=== PATIENT | female | born 1960 | race Caucasian/White ===

== ENCOUNTER → 2017-08-08 | Outpatient (CLI) | payer MEDICAID ==
--- NOTE | 2017-08-08 13:54 | RADIOLOGY REPORT (SQ) ---
EXAM DESCRIPTION: CT CHEST WITHOUT COMPLETED DATE/TIME: 08/08/2017 10:21 am REASON FOR STUDY: TOBACCO USER (Z72.0), PULMONARY NODULE (R91.1), PULM INFILTRATE (R91.8), DY R91.1 SOLITARY PULMONARY NODULE COMPARISON: None. TECHNIQUE: CT scan performed of the chest without intravenous contrast. Images reviewed with lung, soft tissue and bone windows. Reconstructed coronal and sagittal MPR images reviewed. All images st ored on PACS. All CT scanners at this facility use dose modulation, iterative reconstruction, and/or weight based d osing when appropriate to reduce radiation dose to as low as reasonably achievable (ALARA). [facility]: Dose Right [facility]: CareDose [facility]: Dose Right [facility]: Teradose 4D [facility]: Smart [employer] RADIATION DOSE: CT Rad equipment meets quality standard of care and radiation dose reduction techniq ues were employed. CTDIvol: 19.4 mGy. DLP: 792 mGy-cm. mGy. LIMITATIONS: No technical limitations. FINDINGS: LUNGS AND PLEURA: No masses, infiltrates, pneumothorax. No pleural effusions, calcificati ons. HILAR AND MEDIASTINAL STRUCTURES: 12 x 9 mm precarinal lymph node of doubtful clinical significance. HEART AND VASCULAR STRUCTURES: No aneurysm. No pericardial effusion. UPPER ABDOMEN: No significant findings. Limited exam. THYROID AND OTHER SOFT TISSUES: No masses. No adenopathy. BONES: No significant finding. HARDWARE: None in the chest. OTHER: No other significant findings. IMPRESSION: NO SIGNIFICANT FINDING ON NON-CONTRASTED CHEST CT. TECHNICAL DOCUMENTATION: JOB ID: [id number] Quality ID # [id number]: Final reports with documentation of one or more dose reduction techniques (e.g., Au tomated exposure control, adjustment of the mA and/or kV according to patient size, use of iterative reconstruction technique) 2010 [email or web address]- All Rights Reserved
== END ==
LOC: RAD 10:00
PROVIDERS: ATTEND Internal Medicine Critical Care Medicine
DX: R91.1 Solitary pulmonary nodule (principal); R91.8 Other nonspecific abnormal finding of lung field; R06.89 Other abnormalities of breathing; Z72.0 Tobacco use; Z80.9 Family history of malignant neoplasm, unspecified
CPT/HCPCS: 71250

== ENCOUNTER → 2017-11-14 | Outpatient (CLI) | payer MEDICAID | LOC: LAB 06:48 | PROVIDERS: ATTEND Family Medicine | DX: M25.462 Effusion, left knee (principal) | CPT/HCPCS: 36415; 85652; 86140 ==

== ENCOUNTER → 2017-11-14 | Outpatient (CLI) | payer MEDICAID ==
--- NOTE | 2017-11-14 09:43 | RADIOLOGY REPORT (SQ) ---
EXAM DESCRIPTION: PRERNA SWALLOW COMPLETED DATE/TIME: 11/14/2017 9:10 am REASON FOR STUDY: DYSPHAGIA (R13.12) R13.12 DYSPHAGIA, OROPHARYNGEAL PHASE COMPARISON: None. TECHNIQUE: Videofluoroscopic swallowing examination was performed in conjunction with speech patholo gy. Videofluoroscopic imaging was obtained and reviewed and these are the findings: RADIATION DOSE: Fluoro time 2.36 minutes 1 images saved to PACS. LIMITATIONS: None FINDINGS: The patient was brought into the fluoro room and placed upright on a modified barium swall ow chair. The patient was then given multiple consistencies mixed with barium to swallow under live fluoroscopic video guidance. According to the Speech Pathologist there was deep laryngeal penetratio n seen with thin barium. No aspiration identified. All other consistencies swallowed without incide nt. Please refer to the speech pathology report for further details. IMPRESSION: DEEP LARYNGEAL PENETRATION, WITHOUT ASPIRATION, SEEN WITH THIN BARIUM.PLEASE SEE SPEECH PATHOLOGIST REPORT FOR OTHER FINDINGS AND RECOMMENDATIONS. COMMENT: None Quality ID 145: Final reports for procedures using fluoroscopy that document radiation exposure tammie jessiac, or exposure time and number of fluorographic images (if radiation exposure indices are not avail able) TECHNICAL DOCUMENTATION: JOB ID: [id number] [employer]- All Rights Reserved Reading location - IP/workstation name: [id number]
--- NOTE | 2017-11-14 11:17 | ST Modified Barium Swallow ---
Recommendation - Recommendations Recommendations: Recommend small sips of liquid, and liquid wash after solids. Patient may benefit from outpatient swallowing treatment. Patient educated to discuss with physician if she wished to persue this. Medical Diagnoses - Medical Diagnoses Medical Diagnosis Description & ICD-10 Code(s): R13.12, R13.10, dysphagia Other Medical Diagnoses/Co-Morbidities: per patient report: reflux, asthma, arthritis, sleep apnea ST Modified Barium Swallow - General Date: 11/14/17 Referring Physician: Dr. Hills - History History obtained from: Patient -: Medical, Family/Social, Occupational Medications: per patient (not a complete list): Prazosin, Effexor XR, Seroquel, Abilify, HTZC, Vesicarem Albuterol, gabapentin, lisinapril, metformin Allergies: patient reports none - Functional Status Prior Functional Status: INDEPENDENT: feeding - independent Current Functional Limitations: feeding - Subjective Patient/caregiver goal(s): r/o struct. abnormality, other - patient expressed concern about having cancer, patient educated that this test does not look for or diagnose cancer. Encouraged patient to follow up with physician regarding these concers. Cognitive-Linguistic Function: Functional Speech Intelligibility: WNL Current Nutritional Means: PO Current PO diet: Regular Current symptoms: c/o Globus sensation Pain: Patient reports, 5/5 - hip pain, however, states that it is not as bad as it can get - Objective Assessment: Upright, Left Lateral - Food Trials Used Food trials used: Thin liquids, Pureed, Regular The patient: Was Able to Self Feed - Oral-Motor Skills Dentition: Dentures-Upper - Assessment Oral prep: Normal Labial closure: Adequate Leakage: None Mastication: Adequate Lingual Movement: Normal Oral stage: Normal for this Procedure - Pharyngeal Stage Initiation of Pharyngeal Stage Reflex: Normal Decreased laryngeal elevation: No Reduced Velopharyngeal Closure: no Reduced pressure generation: No reduced tongue-based retraction: No Pre-swallow pooling in valleculae: Mild Pre-Swallow pooling in pyriforms: None Reduced Thyro-Hyoid approximation: Yes - mild Reduced epiglottic excursion: Yes - mild Multiple Swallows with: Cleared w/ Liquid Assist Post-swallow residulas vallecular: Moderate - with solid trial Post-Swallow residuals in pyriforms: None - Fall Risk Assessment Medications/Conditions that increase fall risks include: Antidepressants, sedatives, anti-arrhythmic, diuretic, benzodiazipenes, neuroleptics. BP regulation problems, cardiac problems, balance or gait deficits, neurological problems. Fall Risk Actions Taken: No action needed - Behavioral Observations During evaluation process patient: was pleasant, was cooperative, able to answer questions - Treatment / Educational Needs: Treatment/Education Needs: Treatment consisted of patient education on the role of the Speech Pathologist. Patient's plan of care and golas were communicated as well as scheduling and attendance policies. Recommendations for initial home program were shared. Patient demonstrated understanding and verbalized agreement. - Impression/Summary Laryngeal Penetration: Yes, Deep, during swallow Consistency: Thin Tracheal Aspiration: no Patient presents with: Pharyngeal stage dysph., Mild-Moderate Risk of Aspiration: Mild Evaluation and Findings: Patient presents with moderate pharyngeal dysphagia characterized by reduced epiglottic inversion, resulting in penetration of thin liquid, and residue of solids in valleculae and at posterior pharyngeal wall. No aspiration seen, and residue was seen to clear with liquid wash. Recommend liquid wash and reduced rate for liquids. Patient may benefit from outpatient treatment for dysphagia strategies, patient educated to discuss with physician if she wished to persue this. - Recommendations Solid diet recommendations: Regular Liquid Diet Modification: Thin Dysphagia therapy with [employer]: yes - if patient desires Reflux Precautions: Taught to Patient Recommended techniques: Fully Upright During Meal, Small Bites and Sips, Alternate Bites/Sips Information, Precautions and Recommendations: Patient (Written), Patient (Verbal ) - Time Total Time: 20 - Plan of Care Strategies to optimize patient understanding include:: ongoing assessment of educational needs, implementation of educational strategies, and re-education. - - -: Thank you for the opportunity to work with this patient and his/her family. Should you have any questions about this patient's plan or progress, I can be reached at [phone]. Charge G Code? - - -: No
== END ==
LOC: RAD 07:06
DX: R13.12 Dysphagia, oropharyngeal phase (principal)
CPT/HCPCS: 74230

== ENCOUNTER → 2017-11-22 | Outpatient (CLI) | payer MEDICAID ==
--- NOTE | 2017-11-22 09:52 | RADIOLOGY REPORT (SQ) ---
EXAM DESCRIPTION: CT LT LOWER EXTREMITY WITHOUT COMPLETED DATE/TIME: 11/22/2017 8:16 am REASON FOR STUDY: LEFT KNEE EFFUSION (M25.462) M25.462 EFFUSION, LEFT KNEE COMPARISON: None. TECHNIQUE: Axial imaging performed through the left knee with reformatted coronal and sagittal imagi ng windowed for bone and soft tissues. Images saved to PACS. 3D IMAGING: Were 3D images as MIP, SSD, or volume rendering performed at the work station? Yes. All CT scanners at this facility use dose modulation, iterative reconstruction, and/or weight based d osing when appropriate to reduce radiation dose to as low as reasonably achievable (ALARA). [facility]: Dose Right [facility]: CareDose [facility]: Dose Right [facility]: Teradose 4D [facility]: [employer] LIMITATIONS: Regional streak artifact related to the patient's knee arthroplasty. This distorts and obscures regional tissues. RADIATION DOSE: CT Rad equipment meets quality standard of care and radiation dose reduction techniq ues were employed. CTDIvol: 6.5 mGy. DLP: 171 mGy-cm. mGy. FINDINGS: SOFT TISSUES: Thick-walled moderate knee joint effusion. Regional soft tissues generally unremarkable. No other drainable collections. BONES: Knee arthroplasty looks intact with appropriate articulation and no evidence of loosening. No fracture or bone lesion. MINERALIZATION: Normal. OTHER: No other significant finding. IMPRESSION: 1. Moderate joint effusion with likely synovial thickening. 2. Intact knee arthroplast y. No evidence of loosening or periprosthetic fracture. TECHNICAL DOCUMENTATION: JOB ID: [id number] Quality ID # [id number]: Final reports with documentation of one or more dose reduction techniques (e.g., Au tomated exposure control, adjustment of the mA and/or kV according to patient size, use of iterative reconstruction technique) 2010 [employer]- All Rights Reserved Reading location - IP/workstation name: [email or web address]
== END ==
LOC: RAD 08:00
PROVIDERS: ATTEND Family Medicine
DX: M25.462 Effusion, left knee (principal)

== ENCOUNTER 2018-10-23 04:54 | Emergency (ER) | payer MEDICAID ==
[2018-10-23] MEDS ORDERED: NORMAL SALINE 500 ML IV ONE (05:06)
--- NOTE | 2018-10-23 05:08 | ER Document Report ---
ED General - General TRAVEL OUTSIDE OF THE [place] IN LAST 30 DAYS: No <MACARIO DAVIDSON - Last Filed: 10/23/18 08:17> <NORMAN AMAYA - Last Filed: 10/23/18 13:32> - General Chief Complaint: Syncope Stated Complaint: syncopal episode Time Seen by Provider: 10/23/18 04:58 Primary Care Provider: BECKY OLIVEIRA MD [ACTIVE STAFF] - Follow up in 1 week (call to make an appt for 1 week follow-up ) CANDIDO RAGSDALE DO [ACTIVE STAFF] - Follow up as needed Notes: Patient is a 58-year-old female that comes to the emergency department by EMS for chief complaint of a possible syncopal episode. Patient states she had taken her nighttime medication and she woke up on the floor in the kitchen, she states she does not remember how she got there. She states she has pain in her neck and her back but this is been going on for weeks and is not new tonight, is not changed. She denies headache or head injury she denies chest pain or shortness of breath.. She also reports some pain in her abdomen, multiple episodes of diarrhea (approximately 5 over the past day), reports nausea but denies vomiting. She denies fever. She also reports cough for about 1 month. She reports dizziness when standing, EMS is given 500 cc fluid bolus. Past medical history of COPD, type 2 diabetes, hypertension, fibromyalgia, bipolar disorder, . (MACARIO DAVIDSON) - Related Data Allergies/Adverse Reactions: pregabalin [From Lyrica] Allergy (Verified 05/29/16 12:45) Past Medical History - General Information source: Patient - Social History Smoking Status: Never Smoker Frequency of alcohol use: None Drug Abuse: None Lives with: Alone Family History: Reviewed & Not Pertinent - Past Medical History Cardiac Medical History: Reports: Hx Hypercholesterolemia, Hx Hypertension Denies: Hx Pulmonary Embolism Pulmonary Medical History: Reports: Hx Asthma Denies: Hx Bronchitis, Hx COPD, Hx Pneumonia, Hx Respiratory Failure, Hx Sleep Apnea, Hx Tuberculosis Malignancy Medical History: Denies: Hx Lung Cancer GI Medical History: Denies: Hx Crohn's Disease, Hx Gastroesophageal Reflux D isease, Hx Hiatal Hernia, Hx Irritable Bowel, Hx Liver Failure, Hx Pancreatitis, Hx Ulcer Musculoskeletal Medical History: Reports Hx Fibromyalgia Psychiatric Medical History: Reports: Hx Bipolar Disorder, Hx Depression, Hx Post Traumatic Stress Disorder Past Surgical History: Reports: Hx Section, Hx Orthopedic Surgery - back surgery, left hip and knee, Hx Tonsillectomy. Denies: Hx Colostomy, Hx Pacemaker - Immunizations Immunizations up to date: Yes Hx Diphtheria, Pertussis, Tetanus Vaccination: Yes <MACARIO DAVIDSON - Last Filed: 10/23/18 08:17> Review of Systems - Review of Systems Constitutional: See HPI EENT: No symptoms reported Cardiovascular: See HPI Respiratory: No symptoms reported Gastrointestinal: See HPI Genitourinary: No symptoms reported Female Genitourinary: No symptoms reported Musculoskeletal: No symptoms reported Skin: No symptoms reported Hematologic/Lymphatic: No symptoms reported Neurological/Psychological: No symptoms reported <MACARIO DAVIDSON - Last Filed: 10/23/18 08:17> Physical Exam <MACARIO DAVIDSON - Last Filed: 10/23/18 08:17> - Vital signs Vitals: Pulse Ox 96 10/23/18 04:56 - Notes Notes: GENERAL: Alert, interacts well. No acute distress. HEAD: Normocephalic, atraumatic. EYES: Pupils equal, round, and reactive to light. Extraocular movements intact. ENT: Oral mucosa moist, tongue midline. Oropharynx unremarkable. Airway patent. Nares patent, no nasal septal hematoma, TM's intact. NECK: Full range of motion. Supple. Trachea midline. LUNGS: Clear to auscultation bilaterally, no wheezes, rales, or rhonchi. No respiratory distress. HEART: Regular rate and rhythm. No murmur ABDOMEN: Soft, very mild general lower abdominal tenderness. Borderline mild distention. Bowel sounds present in all 4 quadrants. No signs of trauma. GENITOURINARY: Deferred EXTREMITIES: Moves all 4 extremities spontaneously. No edema, normal radial and dorsalis pedis pulses bilaterally. No cyanosis. BACK: Mild bilateral paralumbar and parathoracic muscular tenderness. No signs of trauma. No cervical, thoracic, lumbar midline tenderness. No saddle anesthesia, normal distal neurovascular exam. NEUROLOGICAL: Alert and oriented x3. Normal speech. Cranial nerves II through XII grossly intact. PSYCH: Normal affect, normal mood. SKIN: Warm, dry, normal turgor. No rashes or lesions noted. (MACARIO DAVIDSON) Course - Laboratory Result Diagrams: 10/23/18 04:56 10/23/18 04:56 <MACARIO DAVIDSON - Last Filed: 10/23/18 08:17> - Laboratory Result Diagrams: 10/23/18 04:56 10/23/18 04:56 - EKG Interpretation by Me EKG shows normal: Sinus rhythm Rate: Normal, Bradycardia Rhythm: NSR <NORMAN AMAYA - Last Filed: 10/23/18 13:32> - Re-evaluation Re-evalutation: Patient alert, talkative, smiling, well-appearing. She has her back, no signs of head trauma, no signs of trauma over the chest or abdomen. Very mild lower ab dominal tenderness. Extremities are unremarkable and nontender. Vital signs are unremarkable. Patient is somewhat difficult as a historian, reports a lot of chronic symptoms along with nonspecific new ones. It is unclear if she was sleepwalking or passed out, she is not postictal on my evaluation or on EMS evaluate reported history of seizures. I do not suspect CVA because she does not have a neurological deficit, she does not report a headache and she does not have evidence of head injury. CBC unremarkable, chemistry unremarkable, troponin is negative. EKG shows borderline sinus bradycardia at a rate of 57, QTC of 433, with no T wave inversions or ST segment changes in consecutive leads. Chest x-ray is unremarkable. Patient asking for something for pain from her back and neck although these are not new and this is her chronic location. She states she is unable to get us a sample of diarrhea despite reporting multiple episodes during the day. 10/23/18 06:10 On reexamination patient is now holding her right hip area and and complaining of general lower abdominal pian. This is different from her first evaluation however patient is complaining and holding the areas. On palpation patient has general lower abdominal pain now and patient of pain over the right hip now. Hip pain is reportedly chronic. Patient persisting with this, patient will be medicated for pain CAT scan will be performed because of her fall injury. 10/23/18 07:50 CAT scan showing 3.3 cm left ovarian cyst, no acute findings otherwise. Because of patient's age, general lower abdominal pain, nausea discussed with patient and decision was made to perform ultrasound now. Second troponin, however based on patient's reported symptoms, I did discuss this and patient is telling me that she thinks that she was "sleepwalking and ended up in the kitchen". I agree with this as the most likely event that happened tonight. 10/23/18 08:15 Introduced to Monalisa Amaya at bedside pending final results. (MACARIO DAVIDSON) 0815-diet deposition given by JUANITA Blank,, patient evaluated at bedside, vital signs stable, awaiting ultrasound and serial troponin labs. Patient is not complaining of any pain at this time, afebrile on exam distress 1212-Dr. Becky Oliveira, OBGYN regional sales leader consulted. Patient states she is having some pain in her hip she had been shaking, patient has been on a nature hours, did return call from Dr. Becky Oliveira, SPORTS BOOKMAKER reviewed pertinent laboratory diagnostic and clinical findings. To evaluate patient in office, requested for cancer markers to be ordered for them to be resulted by time doing can evaluate patient in office. Discussed results with patient at length. She is aware that she does need to follow-up with MUCKING MACHINE OPERATOR for further evaluation and management of cyst discussed with patient that she will be given Zofran for any hydrocodone 5 mg 325 will be prescribed from the emergency room #6, do not drive, drink or operate heavy machinery as it can cause impairment of cognitive function and sedation. 3 sets of troponin negative through a 10-hour time frame since intial lab was at 0400 today. patient has not experienced any cardiac pain or shortness of breath, vitals have remained stable, patient has remained afebrile. Patient has been stable throughout duration of ER stay with this provider. after performing a Medical Screening Examination, I estimate there is LOW risk for ACUTE APPENDICITIS, BOWEL OBSTRUCTION, ACUTE CHOLECYSTITIS, PERFORATED DIVERTICULITIS, INCARCERATED HERNIA, PANCREATITIS, PELVIC INFLAMMATORY DISEASE, PERFORATED ULCER, ECTOPIC , or TUBO-OVARIAN ABSCESS, thus I consider the discharge disposition reasonable. Also, there is no evidence or peritonitis, sepsis, or toxicity. I have reevaluated this patient multiple times and no significant life threatening changes are noted. The patient and I have discussed the diagnosis and risks, and we agree with discharging home with close follow-up with the understanding that symptoms and presentations can change. We also discussed returning to the Emergency Department immediately if new or worsening symptoms occur. We have discussed the symptoms which are most concerning (e.g., bloody stool, fever, changing or worsening pain, vomiting) that necessitate i mmediate return. Return immediately for any new or worsening symptoms. Follow up with primary care provider, call tomorrow to make followup appointment. 10/23/18 13:29 (NORMAN AMAYA) - Vital Signs Vital signs: Temp Pulse Resp BP Pulse Ox 97.6 F 18 116/55 L 92 10/23/18 05:08 10/23/18 12:01 10/23/18 12:01 10/23/18 12:01 - Laboratory Laboratory results interpreted by me: 10/23/18 10/23/18 10/23/18 04:56 04:56 07:15 WBC 12.2 H Chloride 108 H Albumin 3.4 L Ur Leukocyte Esterase TRACE H Discharge <MACARIO DAVIDSON - Last Filed: 10/23/18 08:17> <NORMAN AMAYA - Last Filed: 10/23/18 13:32> - Discharge Clinical Impression: Lower abdominal pain, Nausea, Left ovarian cyst Abdominal pain Qualifiers: Abdominal location: generalized Qualified Code(s): R10.84 - Generalized ab dominal pain Condition: Stable Disposition: HOME, SELF-CARE Instructions: Abdominal Pain ([facility]), Antinausea Medication ([facility]), Oral Narcotic Medication ([facility]) Additional Instructions: Your CT abdomen pelvis was essentially normal aside showing a left ovarian cyst, we did do a transvaginal ultrasound which did show that you had a left ovarian mass, he will be following up with SPORTS BOOKMAKER, Dr. Becky Oliveira, within 1 week to review further findings. We will send you home with anti-nausea medication and pain medication, do not drive, drink or operate heavy machinery as this can cause sedation and impairment of cognitive function. You will need to follow-up with MUCKING MACHINE OPERATOR within the next week if you experience any fever, abdominal pain, vomiting, vaginal bleeding, vaginal pain etc. return to emergency room immediately. Return immediately for any new or worsening symptoms. Follow up with primary care provider, call tomorrow to make followup appointment. Prescriptions: Ondansetron [Zofran Odt 4 mg Tablet] 1 - 2 tab PO Q4H PRN #15 tab.rapdis PRN Reason: For Nausea/Vomiting Referrals: JN,CANDIDO A, DO [ACTIVE STAFF] - Follow up as needed BECKY OLIVEIRA MD [ACTIVE STAFF] - Follow up in 1 week (call to make an appt for 1 week follow-up )
[2018-10-23] MEDS ORDERED: ONDANSETRON HCL INJ/PF 4 MG/2 ML SDV IV ONE (05:09)
[2018-10-23 05:18] LABS: ABSOLUTE BASOPHILS # (AUTO) 0.1 10^3/uL (0.0-0.2); ABSOLUTE EOSINOPHILS # (AUTO) 0.3 10^3/uL (0.0-0.6); ABSOLUTE LYMPHOCYTES (AUTO) 4.7 10^3/uL (0.5-4.7); ABSOLUTE NEUT (AUTO) 6.2 10^3/uL (1.7-8.2); BASOPHILS % (AUTO) 0.5 % (0-2); EOSINOPHILS % (AUTO) 2.7 % (0-6); HEMOGLOBIN 12.5 g/dL (12.0-15.5); LYMPHOCYTES % (AUTO) 38.4 % (13-45); MEAN CORPUSCULAR HEMOGLOBIN 31.2 pg (27.0-33.4); MEAN CORPUSCULAR HGB CONC 33.8 g/dL (32.0-36.0); MEAN CORPUSCULAR VOLUME 92 fl (80-97); MONOCYTES % (AUTO) 7.9 % (3-13); PLATELET COUNT 305 10^3/uL (150-450); RED BLOOD COUNT 4.02 10^6/uL (3.72-5.28); RED CELL DISTRIBUTION WIDTH 13.2 % (11.5-14.0); SEGMENTED NEUTROPHILS % (AUTO) 50.5 % (42-78); TOTAL CELLS COUNTED % (AUTO) 100 %; WHITE BLOOD COUNT 12.2 10^3/uL (4.0-10.5)
--- NOTE | 2018-10-23 05:44 | RADIOLOGY REPORT (SQ) ---
Chest single view on 10/23/2018 at 5:31 AM CLINICAL INDICATION: Syncopal episode COMPARISON: 06/07/2011 FINDINGS: Evaluation of the lungs especially the upper lungs is limited by technique with overpenetration. A few overlying wires are noted. The lungs appear grossly clear. Cardiac, hilar and mediastinal contours are within normal limits. Pulmonary vascularity is within normal limits. IMPRESSION: No acute disease.
[2018-10-23 05:46] LABS: ALANINE AMINOTRANSFERASE 24 U/L (9-52); ALBUMIN 3.4 g/dL (3.5-5.0); ALKALINE PHOSPHATASE 57 U/L (38-126); ANION GAP 6 (5-19); ASPARTATE AMINO TRANSFERASE 20 U/L (14-36); BILIRUBIN,DIRECT 0.2 mg/dL (0.0-0.4); BILIRUBIN,TOTAL 0.4 mg/dL (0.2-1.3); BLOOD UREA NITROGEN 20 mg/dL (7-20); CALCIUM 9.2 mg/dL (8.4-10.2); CARBON DIOXIDE 27 mmol/L (22-30); CHLORIDE 108 mmol/L (98-107); GLUCOSE 103 mg/dL (75-110); POTASSIUM 4.2 mmol/L (3.6-5.0); SODIUM 141.2 mmol/L (137-145); TOTAL PROTEIN 6.7 g/dL (6.3-8.2)
[2018-10-23] MEDS ORDERED: FENTANYL CITRATE INJ/PF 100 MCG/2 ML AMPUL IV ONE ×2 (06:12→12:17)
--- NOTE | 2018-10-23 07:44 | RADIOLOGY REPORT (SQ) ---
CT abdomen and pelvis with contrast on 10/23/2018 at 6:55 AM CLINICAL INDICATION: Lower abdominal pain after fall, right hip pain TECHNIQUE: Multiple axial images are obtained throughout the abdomen and pelvis following the administration of IV contrast, 100 mL of Omnipaque 350 contrast was administered intravenously without complication. This exam was performed according to our departmental dose-optimization program, which includes automated exposure control, adjustment of the mA and/or kV according to patient size and/or use of iterative reconstruction technique. Total DLP is 2610.76 mGy*cm. COMPARISON: None FINDINGS: Abdomen: The lung bases are clear. There is fatty infiltration of the liver. The solid abdominal organs are otherwise unremarkable. There is no abdominal adenopathy. Mild vascular calcifications are noted. There is no free fluid or free air within the abdomen. The abdominal portion of the GI tract is unremarkable. Pelvis: There is a 3.3 x 2.9 x 3.1 cm simple appearing left ovarian cyst. Based upon the patient's age and its size would recommend prompt ultrasound follow-up. Pelvic organs otherwise appear unremarkable by CT. There is no free fluid in the pelvis. There is no pelvic adenopathy. The pelvic portion of the GI tract including the appendix is unremarkable. The patient is status post a right total hip arthroplasty. Degenerative changes are noted in the spine. There is grade 1 spondylolisthesis at L4-5 and L3-4 secondary to degenerative facet disease. No acute bony abnormality is noted. IMPRESSION: 1. 3.3 cm simple appearing left ovarian cyst. Based upon its size and the patient's age would recommend prompt ultrasound follow-up. 2. Fatty infiltration of the liver.
[2018-10-23 07:48] LABS: APPEARANCE,URINE SLIGHTLY-CLOUDY; BILIRUBIN,URINE NEGATIVE (NEGATIVE); COLOR,URINE YELLOW; GLUCOSE, URINE NEGATIVE (NEGATIVE); KETONES,URINE NEGATIVE (NEGATIVE); LEUKOCYTE ESTERASE,URINE TRACE (NEGATIVE); NITRITE,URINE NEGATIVE (NEGATIVE); PROTEIN,URINE NEGATIVE (NEGATIVE); URINE SPECIFIC GRAVITY 1.025; UROBILINOGEN,URINE NEGATIVE mg/dL (<2.0)
--- NOTE | 2018-10-23 07:56 | EKG REPORT ---
SEVERITY:- ABNORMAL ECG - SINUS RHYTHM ABNRM R PROG, CONSIDER ASMI OR LEAD PLACEMENT : Confirmed by: Tony Lott MD 23-Oct-2018 07:55:45
--- NOTE | 2018-10-23 10:35 | RADIOLOGY REPORT (SQ) ---
EXAM DESCRIPTION: U/S NON OB PEL TV W/DOPPLER COMPLETED DATE/TIME: 10/23/2018 10:19 am REASON FOR STUDY: eval cyst; lower abd pain, nausea COMPARISON: CT abdomen pelvis examination dated 10/23/2018. TECHNIQUE: Dynamic and static grayscale images acquired of the pelvis via transvaginal approach and recorded on PACS. Additional selected color Doppler and spectral images recorded. LIMITATIONS: None. FINDINGS: UTERUS: Contour normal. No mass. ENDOMETRIAL STRIPE: No focal or generalized thickening. No masses. CERVIX: The cervix measures 1.2 cm in length. No nabothian cysts. RIGHT OVARY AND DOPPLER: Not visualized. LEFT OVARY AND DOPPLER: A 3.3 x 2.7 x 3.6 cm cyst with some low level internal echoes. This finding likely correlates to the CT abdomen and pelvis examination dated 10/23/2018. FREE FLUID: None noted. OTHER: The patient was unable to completely emptied the urinary bladder, limiting evaluation somewha t. MEASUREMENTS: UTERUS: 5.6 x 4.0 x 3.2 cm ENDOMETRIAL STRIPE: 5 mm RIGHT OVARY: Not visualized LEFT OVARY: 4 x 4 x 4.3 cm. IMPRESSION: 1. The right ovary is not visualized sonographically. 2. Left ovarian cyst with some low-level internal echoes. This finding likely correlates to the CT examination dated 10/23/2018. Correlation suggested. Please see comments below. COMMENT: Followup of asymptomatic indeterminate cysts detected by ultrasound in POSTMENOPAUSAL patie nts Findings suggestive of but not classic for hemorrhagic cyst, endometrioma or dermoid: *Consider surgical evaluation Single thin septation or focal wall calcification: *Same as simple cyst, based on size Multiple septations in a cyst: *Consider surgical evaluation Nodule in a cyst: *Consider surgical evaluation or MRI if no blood flow in nodule *Consider surgical evaluation if blood flow in nodule Note: If cyst is clinically symptomatic or otherwise concerning, other followup may be warranted. Menopause is considered age 50 by radiologist unless age of last period is known. Based on recommenda tions of the Society for Radiologists in Ultrasound Consensus Conference Statement 2010 on management of asymptomatic ovarian and other adnexal cysts imaged at ultrasound. trasound. TECHNICAL DOCUMENTATION: JOB ID: [id number] [employer]- All Rights Reserved Rev Reading location - IP/workstation name: [email or web address]
[2018-10-23] MEDS ORDERED: HYDROCODONE/ACETAMINOPHEN 5-325 MG (6 TAB/ER DISP) PO PRN (13:24)
[2018-10-23 13:33] VITALS: BP 116/65
== END 2018-10-23 13:43 | disposition home or self-care (01) ==
LOC: ER 04:54
DX: N83.202 Unspecified ovarian cyst, left side (principal); R10.30 Lower abdominal pain, unspecified; R10.84 Generalized abdominal pain; R55 Syncope and collapse; M54.2 Cervicalgia; R42 Dizziness and giddiness; R10.9 Unspecified abdominal pain; R19.7 Diarrhea, unspecified; R11.0 Nausea; R05 Cough; W18.30XA Fall on same level, unspecified, initial encounter; Y93.9 Activity, unspecified; Y92.000 Kitchen of unspecified non-institutional (private) residence as the place of occurrence of the external cause; J44.9 Chronic obstructive pulmonary disease, unspecified; I10 Essential (primary) hypertension; E11.9 Type 2 diabetes mellitus without complications
CPT/HCPCS: 93005; 96376; 99285; 96361; 96374; 96375; 36415; 86301; 86304; 82378; 83690; 85025; 80053; 81001; 84484; 71045; 76830; 93976; 74177; 93010; J3010; J2405; J7040

== ENCOUNTER 2019-01-02 10:34 | Day surgery (SDC) | payer MEDICAID ==
[2018-12-31 12:02] LABS: HEMATOCRIT 38.9 % (36.0-47.0); HEMOGLOBIN 13.2 g/dL (12.0-15.5); MEAN CORPUSCULAR HGB CONC 33.9 g/dL (32.0-36.0); MEAN CORPUSCULAR VOLUME 92 fl (80-97); PLATELET COUNT 357 10^3/uL (150-450); RED BLOOD COUNT 4.25 10^6/uL (3.72-5.28); RED CELL DISTRIBUTION WIDTH 13.6 % (11.5-14.0); WHITE BLOOD COUNT 10.9 10^3/uL (4.0-10.5)
[2018-12-31 12:19] LABS: APPEARANCE,URINE SLIGHTLY-CLOUDY; BILIRUBIN,URINE NEGATIVE (NEGATIVE); COLOR,URINE YELLOW; GLUCOSE, URINE NEGATIVE (NEGATIVE); KETONES,URINE NEGATIVE (NEGATIVE); LEUKOCYTE ESTERASE,URINE MODERATE (NEGATIVE); NITRITE,URINE NEGATIVE (NEGATIVE); PROTEIN,URINE NEGATIVE (NEGATIVE); URINE SPECIFIC GRAVITY 1.016; UROBILINOGEN,URINE NEGATIVE mg/dL (<2.0)
[2018-12-31 12:24] LABS: ALANINE AMINOTRANSFERASE 31 U/L (9-52); ALBUMIN 4.2 g/dL (3.5-5.0); ALKALINE PHOSPHATASE 64 U/L (38-126); ANION GAP 11 (5-19); ASPARTATE AMINO TRANSFERASE 26 U/L (14-36); BILIRUBIN,DIRECT 0.2 mg/dL (0.0-0.4); BILIRUBIN,TOTAL 0.3 mg/dL (0.2-1.3); BLOOD UREA NITROGEN 22 mg/dL (7-20); CALCIUM 9.4 mg/dL (8.4-10.2); CARBON DIOXIDE 28 mmol/L (22-30); CHLORIDE 101 mmol/L (98-107); GLUCOSE 97 mg/dL (75-110); POTASSIUM 4.7 mmol/L (3.6-5.0); TOTAL PROTEIN 7.7 g/dL (6.3-8.2)
--- NOTE | 2018-12-31 12:49 | RADIOLOGY REPORT (SQ) ---
EXAM DESCRIPTION: CHEST PA/LATERAL COMPLETED DATE/TIME: 12/31/2018 11:38 am REASON FOR STUDY: PRE-OP COMPARISON: 10/23/2018 EXAM PARAMETERS: NUMBER OF VIEWS: two views TECHNIQUE: Digital Frontal and Lateral radiographic views of the chest acquired. RADIATION DOSE: NA LIMITATIONS: none FINDINGS: LUNGS AND PLEURA: No opacities, masses or pneumothorax. No pleural effusion. MEDIASTINUM AND HILAR STRUCTURES: No masses or contour abnormalities. HEART AND VASCULAR STRUCTURES: Heart normal size. No evidence for failure. BONES: No acute findings. HARDWARE: None in the chest. OTHER: No other significant finding. IMPRESSION: NO SIGNIFICANT RADIOGRAPHIC FINDING IN THE CHEST. TECHNICAL DOCUMENTATION: JOB ID: [id number] [employer]- All Rights Reserved Reading location - IP/workstation name: [email or web address]
--- NOTE | 2019-01-01 00:36 | EKG REPORT ---
SEVERITY:- NORMAL ECG - SINUS RHYTHM : Confirmed by: Joanna Perry 01-Jan-2019 00:36:33
[~2019-01-02 10:34] MED LIST: LACTATED RINGERS 1000 ML IV PRN; LIDOCAINE 0.5% INJ-PF (5 MG/ML) 50 ML SDV SUBCUT PRN; LIDOCAINE 2% INJ (20 MG/ML) 20 ML MDV ONE
[2019-01-02] MEDS ORDERED: ALBUTEROL SULFATE 0.083% NEB 2.5 MG/3 ML AMPUL NEB ONE (10:51)
[2019-01-02] MEDS ORDERED: BUPIVACAINE HCL 0.25 % INJ/PF (2.5 MG/1 ML) 30 ML VIAL ONE (11:07)
[2019-01-02] MEDS ORDERED: FENTANYL CITRATE INJ/PF 100 MCG/2 ML AMPUL ONE (11:11)
[2019-01-02] MEDS ORDERED: MIDAZOLAM 2 MG/2 ML INJ ONE (11:11)
[2019-01-02] MEDS ORDERED: HYDROMORPHONE HCL INJ/PF 2 MG/ML AMPULE ONE (11:11)
[2019-01-02] MEDS ORDERED: PROPOFOL INJ 200 MG/20 ML VIAL IV ONE (11:12)
[2019-01-02] MEDS ORDERED: EPHEDRINE SULFATE INJ 50 MG/1 ML AMPULE ONE (12:14)
[2019-01-02] MEDS ORDERED: PROMETHAZINE HCL INJ 25 MG/1 ML VIAL IV PRN (12:28)
[2019-01-02] MEDS ORDERED: MEPERIDINE HCL/PF INJ 25 MG/1 ML DISP.SYRIN IV PRN (12:28)
[2019-01-02] MEDS ORDERED: OXYCODONE-ACETAMINOPHEN 5-325 MG TABLET PO PRN ×4 (12:28→14:39)
[2019-01-02] MEDS ORDERED: FENTANYL CITRATE INJ/PF 100 MCG/2 ML AMPUL IV PRN ×3 (12:28)
[2019-01-02] MEDS ORDERED: ONDANSETRON HCL INJ/PF 4 MG/2 ML SDV IV PRN ×2 (12:28→14:32)
[2019-01-02] MEDS ORDERED: DIPHENHYDRAMINE HCL 50 MG/ML VIAL IV PRN (12:28)
[2019-01-02] MEDS ORDERED: MORPHINE SULFATE 10 MG/ML INJ IV PRN (12:28)
[2019-01-02] MEDS: FENTANYL CITRATE INJ/PF 100 MCG/2 ML AMPUL ONE ×2 (14:05→14:10)
[2019-01-02] MEDS ORDERED: ACETAMINOPHEN 1,000 MG/100 ML RTUPB IV ONE (14:29)
[2019-01-02] MEDS ORDERED: IBUPROFEN 800 MG TABLET PO PRN (14:35)
[2019-01-02] MEDS ORDERED: OXYCODONE-ACETAMINOPHEN 5-325 MG TABLET ONE (14:55)
[2019-01-02 16:26] VITALS: BP 119/68
[2019-01-02] MEDS ORDERED: ONDANSETRON HCL INJ/PF 4 MG/2 ML SDV ONE (17:26)
[2019-01-02] MEDS ORDERED: SUCCINYLCHOLINE CHLORIDE INJ 200 MG/10 ML VIAL ONE (17:26)
[2019-01-02] MEDS ORDERED: DEXAMETHASONE SOD PHOSPHATE INJ 4 MG/1 ML VIAL ONE (17:26)
[2019-01-02] MEDS ORDERED: ROCURONIUM BROMIDE INJ 50 MG/5 ML VIAL IV ONE (17:26)
--- NOTE | 2019-02-02 00:52 | Operative Report ---
Operative Report DATE OF SURGERY: 01/02/19 PREOPERATIVE DIAGNOSIS: Pelvic pain, left ovarian cyst, Menopausal POSTOPERATIVE DIAGNOSIS: ENRIQUETA - pelvic Adhesions OPERATION: Operative Laparoscopy, Bilateral Salpingo-Ophorectomy, Lysis of Adhesions SURGEON: JANET NAQVI ANESTHESIA: GA TISSUE REMOVED OR ALTERED: bilateral fallopian tubes, bilateral ovaries COMPLICATIONS: none ESTIMATED BLOOD LOSS: less than 10ml INTRAOPERATIVE FINDINGS: small AV uterus on EUA, normal right ovary and right adnexa. Adhesions of bowel over left ovary, 3-4cm cystic mass of left ovary, Fallope ring occlusive devices removed. Bilateral fallopian tubes removed, bilateral ovaries removed. PROCEDURE: Anesthesiologist: Colby CUNNINGHAM, Denise Cunningham CRNA IV fluids: [1600ml] Urine output: [100ml] Indications: [58yo with several months of pelvic pain and seen in the ER on 10/23 for back and hip pain and evaluation noted left ovarian cyst. Case discussed with Dr. Allison and tumor markers negative and recommended repeat US in 6-8 weeks and removal if persistent. Repeat Ultrasound noted persistent left ovarian cyst which was stable in size. Reviewed recommendations for removal of left ovarian cyst and due to age bilateral salpingo-ophorectomy. The risks, benefits, alternatives were reviewed and she desires to proceed with planned procedure.] Procedure: The patient was taken to the operating room where general anesthesia was obtained without difficulty. The patient was then examined under anesthesia with findings as noted above with a small anteverted uterus and possible left adnexal mass. She was then placed in dorsal supine lithotomy position and prepped and draped in the normal sterile fashion. Bosque speculum was then placed in the patient's vagina and the anterior lip of the cervix grasped with a single-tooth tenaculum. A [employer] uterine manipulator was then advanced into the uterus to provide a means of manipulation of the uterus. The speculum and tenaculum were then removed from the patient's cervix and vagina. Attention was then turned to the patient's abdomen where a 5 mm infraumbilical skin incision was then made. The Optiview trocar with 0 laparoscope was then advanced without difficulty under direct visualization with the Optiview trocar. This was performed while tenting the abdominal wall and these will fashion. Intraperitoneal placement was confirmed by the direct visualization. Pneumoperitoneum was then obtained with approximately 4 L carbon dioxide gas. Survey of the patient's abdomen and pelvis revealed findings as noted above. A second skin incision was then made approximately 3 cm superior 4 cm medial to the anterior superior iliac spine on the left and then a third skin incision was made approximately 3 cm superior to the lower incision. These incisions were made under direct visualization with the laparoscope. The second and third trochars were then advanced under direct visualization of the laparoscope at the sites. Monopolar scissors were used to carefully dissect the bowel adhesions from the left pelvic sidewall and covering the left ovary. The right fallopian tube and ovary was then identified and followed out to the fimbriated end and the LigaSure device was used to clamp and cauterize and cut the mesosalpinx and infundibulopelvic ligment extending from the fimbriated end to the cornua of the uterus thus removing the right fallopian tube and right ovary in its entirety. Attention was then turned to the left adnexa at which time the left fallopian tube was identified and followed out to the fimbriated end and the LigaSure device was then used to clamp and cauterize and cut the mesosalpinx and infundibulopelvic ligament extending from the fimbriated end of the left fallopian tube to the uterine cornua thus removing the left fallopian tube and left ovary in its entirety. The left and right fallopian tubes and bilateral ov iván were removed easily through the trocar. All operative sites were visualized and noted to be hemostatic. The 2 additional trochars on the patient's left greater than removed under direct visualization. The 10 mm trocar was then removed after abdominal insufflation was removed. The fascia at the 10 mm trocar site was closed with 0 Vicryl on a UR 6 needle. The skin at all trocar sites were closed with 3-0 Monocryl in a subcuticular fashion with overlying Dermabond. No antibiotics were indicated for this procedure. After completion of skin closure of the trocar sites attention was then turned to the vagina where the [employer] uterine manipulator was removed and the bivalve speculum was replaced. Silver nitrate was applied to the tenaculum sites for hemostasis and the speculum was removed. Sponge lap needle and instrument counts were correct 3. The patient tolerated the procedure well and was taken to the recovery area awake and in stable condition.
== END 2019-01-02 16:15 | disposition home or self-care (01) ==
LOC: OROUT 10:34
PROVIDERS: ATTEND Student in an Organized Health Care Education/Training Program
DX: N83.202 Unspecified ovarian cyst, left side (principal); N73.6 Female pelvic peritoneal adhesions (postinfective); N83.201 Unspecified ovarian cyst, right side; N94.89 Other specified conditions associated with female genital organs and menstrual cycle; R10.2 Pelvic and perineal pain; Z87.891 Personal history of nicotine dependence; I10 Essential (primary) hypertension; J45.909 Unspecified asthma, uncomplicated
CPT/HCPCS: 93005; 86900; 86901; 36415; 86850; 82962; 85027; 81005; 81025; 80053; 88162; 88305 ×2; 71046; 93010; 00851; 58661; J2250; J3490 ×3; J1100; J3010; J1170; J0330; J2405; S0020; J2704; J0131; 851

== ENCOUNTER 2019-05-14 09:32 | Emergency (ER) | payer MEDICARE, MEDICAID ==
[2019-05-14 10:17] LABS: ABSOLUTE BASOPHILS # (AUTO) 0.1 10^3/uL (0.0-0.2); ABSOLUTE EOSINOPHILS # (AUTO) 0.3 10^3/uL (0.0-0.6); ABSOLUTE LYMPHOCYTES (AUTO) 3.4 10^3/uL (0.5-4.7); ABSOLUTE MONOCYTES (AUTO) 0.8 10^3/uL (0.1-1.4); ABSOLUTE NEUT (AUTO) 5.1 10^3/uL (1.7-8.2); BASOPHILS % (AUTO) 0.8 % (0-2); EOSINOPHILS % (AUTO) 2.6 % (0-6); HEMATOCRIT 36.7 % (36.0-47.0); HEMOGLOBIN 12.6 g/dL (12.0-15.5); LYMPHOCYTES % (AUTO) 35.6 % (13-45); MEAN CORPUSCULAR HEMOGLOBIN 31.2 pg (27.0-33.4); MEAN CORPUSCULAR HGB CONC 34.2 g/dL (32.0-36.0); MEAN CORPUSCULAR VOLUME 91 fl (80-97); MONOCYTES % (AUTO) 8.5 % (3-13); PLATELET COUNT 335 10^3/uL (150-450); RED BLOOD COUNT 4.03 10^6/uL (3.72-5.28); SEGMENTED NEUTROPHILS % (AUTO) 52.5 % (42-78); TOTAL CELLS COUNTED % (AUTO) 100 %; WHITE BLOOD COUNT 9.7 10^3/uL (4.0-10.5)
[2019-05-14 10:42] LABS: ALBUMIN 3.8 g/dL (3.5-5.0); ALKALINE PHOSPHATASE 62 U/L (38-126); ANION GAP 9 (5-19); ASPARTATE AMINO TRANSFERASE 26 U/L (14-36); BILIRUBIN,DIRECT 0.1 mg/dL (0.0-0.4); BILIRUBIN,TOTAL 0.3 mg/dL (0.2-1.3); BLOOD UREA NITROGEN 15 mg/dL (7-20); CALCIUM 9.2 mg/dL (8.4-10.2); CARBON DIOXIDE 25 mmol/L (22-30); CHLORIDE 107 mmol/L (98-107); CREATINE KINASE 221 U/L (30-135); GLUCOSE 99 mg/dL (75-110); POTASSIUM 4.2 mmol/L (3.6-5.0); TOTAL PROTEIN 7.3 g/dL (6.3-8.2)
[2019-05-14 10:54] LABS: CREATINE KINASE MB 3.03 ng/mL (<4.55)
[2019-05-14 10:56] LABS: TROPONIN I < 0.012 ng/mL
[2019-05-14] MEDS ORDERED: ACETAMINOPHEN 325 MG TABLET PO ONE (11:18)
[2019-05-14] MEDS ORDERED: MECLIZINE HCL 25 MG TABLET PO ONE (11:18)
--- NOTE | 2019-05-14 11:22 | ER Document Report ---
ED General - General Chief Complaint: Vertigo Stated Complaint: DIZZINESS Time Seen by Provider: 05/14/19 11:17 Primary Care Provider: GLORIA COVARRUBIAS PA-C [Primary Care Provider] - Follow up as needed TRAVEL OUTSIDE OF THE [place] IN LAST 30 DAYS: No - HPI Onset: This morning Onset/Duration: Sudden Quality of pain: Burning Severity: Moderate Pain Level: 3 Context: 59 year old female who is right handed and has h/o htn, dm, current everyday smoker was at [employer] this am and called EMS due to dizziness. She abruptly had vertiginous dizziness start today upon waking and standing. Room is spinning. No chest pain or sob. Chronic right lower jaw pain and head salmon. She was at [facility] for scalp burning and pain and perscribed a cream for inflamatory scalp dermatitis. - Related Data Allergies/Adverse Reactions: pregabalin [From Lyrica] Adverse Reaction (Severe, Verified 01/01/19 07:55) "loopy" Past Medical History - Social History Smoking Status: Current Every Day Smoker Family History: Reviewed & Not Pertinent Patient has suicidal ideation: No Patient has homicidal ideation: No - Past Medical History Cardiac Medical History: Reports: Hx Hypercholesterolemia, Hx Hypertension - meds Denies: Hx Coronary Artery Disease, Hx Heart Attack, Hx Pulmonary Embolism Pulmonary Medical History: Reports: Hx Asthma - meds Denies: Hx Bronchitis, Hx COPD, Hx Pneumonia, Hx Respiratory Failure, Hx Sleep Apnea, Hx Tuberculosis Neurological Medical History: Denies: Hx Cerebrovascular Accident, Hx Seizures Endocrine Medical History: Reports: Hx Diabetes Mellitus Type 2 Renal/ Medical History: Denies: Hx Peritoneal Dialysis Malignancy Medical History: Denies: Hx Lung Cancer GI Medical History: Denies: Hx Crohn's Disease, Hx Gastroesophageal Reflux Disease, Hx Hiatal Hernia, Hx Irritable Bowel, Hx Liver Failure, Hx Pancreatitis, Hx Ulcer Musculoskeletal Medical History: Reports Hx Arthritis - generalized, Reports Hx Fibromyalgia Psychiatric Medical History: Reports: Hx Bipolar Disorder, Hx Depression, Hx P ost Traumatic Stress Disorder, Hx Schizophrenia Past Surgical History: Reports: Hx Cardiac Surgery, Hx Section, Hx Hysterectomy - "partial hysterectomy from an ovarian cyst", Hx Orthopedic Surgery - back surgery, left hip and knee replacement, Hx Tonsillectomy. Den ies: Hx Colostomy, Hx Pacemaker - Immunizations Immunizations up to date: Yes Hx Diphtheria, Pertussis, Tetanus Vaccination: Yes Review of Systems - Review of Systems Constitutional: No symptoms reported EENT: No symptoms reported Cardiovascular: No symptoms reported Respiratory: No symptoms reported Gastrointestinal: No symptoms reported Genitourinary: No symptoms reported Female Genitourinary: No symptoms reported Musculoskeletal: No symptoms reported Skin: No symptoms reported Hematologic/Lymphatic: No symptoms reported Neurological/Psychological: No symptoms reported Physical Exam - Vital signs Vitals: Resp Pulse Ox 22 H 96 05/14/19 09:58 05/14/19 09:58 Interpretation: Normal - General General appearance: Appears well, Alert - HEENT Head: Normocephalic, Atraumatic Eyes: Normal Pupils: PERRL - Respiratory Respiratory status: No respiratory distress Chest status: Nontender Breath sounds: Normal Chest palpation: Normal - Cardiovascular Rhythm: Regular Heart sounds: Normal auscultation Murmur: No - Abdominal Inspection: Normal Distension: No distension Bowel sounds: Normal Tenderness: Nontender Organomegaly: No organomegaly - Back Back: Normal, Nontender - Extremities General upper extremity: Normal inspection, Nontender, Normal color, Normal ROM, Normal temperature General lower extremity: Normal inspection, Nontender, Normal color, Normal ROM, Normal temperature, Normal weight bearing. No: Raven's sign - Neurological Neuro grossly intact: Yes Cognition: Normal Orientation: AAOx4 Demario Coma Scale Eye Opening: Spontaneous Demario Coma Scale Verbal: Oriented Marshall Coma Scale Motor: Obeys Commands Demario Coma Scale Total: 15 Speech: Normal Motor strength normal: LUE, RUE, LLE, RLE Sensory: Normal - Psychological Associated symptoms: Normal affect, Normal mood - Skin Skin Temperature: Warm Skin Moisture: Dry Skin Color: Normal Course - Re-evaluation Re-evalutation: 05/14/19 13:21 MDM 59 year old with history consistent with vertigo. Feels improved but not at baseline when I see here for recheck. Discussed follow up and she expressed understanding. - Vital Signs Vital signs: Temp Pulse Resp BP Pulse Ox 19 107/73 96 05/14/19 13:01 05/14/19 13:01 05/14/19 13:01 - Laboratory Result Diagrams: 05/14/19 10:04 05/14/19 10:04 Laboratory results interpreted by me: 05/14/19 10:04 Creatine Kinase 221 H - Diagnostic Test Radiology reviewed: Pending, Image reviewed, Reports reviewed - EKG Interpretation by Me EKG shows normal: Sinus rhythm Rate: Bradycardia When compared to previous EKG there are: No significant change - Sinus Petey [address] elevation or depression my interpretation. Discharge - Discharge Clinical Impression: Vertigo Condition: Good Disposition: Tertiary-Other Instructions: Dizziness ([facility]), Vertigo ([facility]) Additional Instructions: Rest, take your medicine as directed. Call your doctor in [place] for follow up. Please return here for any problems or any concerns. Prescriptions: Meclizine HCl [Antivert 12.5 mg Tablet] 12.5 mg PO TID #21 tablet Referrals: GLORIA COVARRUBIAS PA-C [Primary Care Provider] - Follow up as needed
[2019-05-14 11:46] LABS: APPEARANCE,URINE CLEAR; BILIRUBIN,URINE NEGATIVE (NEGATIVE); COLOR,URINE YELLOW; GLUCOSE, URINE NEGATIVE (NEGATIVE); KETONES,URINE NEGATIVE (NEGATIVE); LEUKOCYTE ESTERASE,URINE NEGATIVE (NEGATIVE); NITRITE,URINE NEGATIVE (NEGATIVE); PROTEIN,URINE NEGATIVE (NEGATIVE); URINE SPECIFIC GRAVITY 1.012; UROBILINOGEN,URINE NEGATIVE mg/dL (<2.0)
--- NOTE | 2019-05-14 12:01 | RADIOLOGY REPORT (SQ) ---
EXAM DESCRIPTION: CT HEAD WITHOUT COMPLETED DATE/TIME: 05/14/2019 11:46 am REASON FOR STUDY: dizziness COMPARISON: CT of the head without contrast from 06/07/2011 TECHNIQUE: Axial images acquired through the brain without intravenous contrast. Images reviewed wi th bone, brain and subdural windows. Additional sagittal and coronal reconstructions were generated. Images stored on PACS. All CT scanners at this facility use dose modulation, iterative reconstruction, and/or weight based d osing when appropriate to reduce radiation dose to as low as reasonably achievable (ALARA). [facility]: Dose Right [facility]: CareDose [facility]: Dose Right [facility]: Teradose 4D [facility]: Webdyn RADIATION DOSE: CT Rad equipment meets quality standard of care and radiation dose reduction techniq ues were employed. CTDIvol: 53.2 mGy. DLP: 1070 mGy-cm. mGy. LIMITATIONS: None. FINDINGS: There is no acute intracranial hemorrhage, vascular territorial infarct, extra-axial fluid collection, mass effect or midline shift. There is no effacement of cerebral sulci or basal subarac hnoid cisterns. The alcazar-white matter differentiation is preserved. The caliber of the ventricles i s concordant with the degree of sulcation. The orbits and globes are intact. The paranasal sinuses and mastoid air cells are clear. There is no fracture of the calvarium. IMPRESSION: No acute intracranial abnormality. EVIDENCE OF ACUTE STROKE: NO. COMMENT: Quality ID # [id number]: Final reports with documentation of one or more dose reduction techniques (e.g., Automated exposure control, adjustment of the mA and/or kV according to patient size, use of iterative reconstruction technique) TECHNICAL DOCUMENTATION: JOB ID: [id number] [employer]- All Rights Reserved Reading location - IP/workstation name: [email or web address]
--- NOTE | 2019-05-14 12:15 | RADIOLOGY REPORT (SQ) ---
EXAM DESCRIPTION: CHEST SINGLE VIEW COMPLETED DATE/TIME: 05/14/2019 11:58 am REASON FOR STUDY: HTN COMPARISON: PA and lateral views of the chest from 12/31/2018. EXAM PARAMETERS: NUMBER OF VIEWS: One view. TECHNIQUE: Single frontal radiographic view of the chest acquired. RADIATION DOSE: NA LIMITATIONS: None. FINDINGS: LUNGS AND PLEURA: Low inspiratory lung volumes without a definite consolidation, pleural e ffusion or pneumothorax. MEDIASTINUM AND HILAR STRUCTURES: Stable mediastinal and hilar contours. HEART AND VASCULAR STRUCTURES: The cardiac silhouette and pulmonary vasculature are within normal bautista its given the low inspiratory lung volumes. BONES: No acute findings. HARDWARE: None in the chest. OTHER: No other finding. IMPRESSION: Low inspiratory lung volumes without a superimposed acute cardiopulmonary process. TECHNICAL DOCUMENTATION: JOB ID: [id number] [employer]- All Rights Reserved Reading location - IP/workstation name: [email or web address]
[2019-05-14 13:51] VITALS: BP 149/82
--- NOTE | 2019-05-14 16:19 | EKG REPORT ---
SEVERITY:- NORMAL ECG - SINUS RHYTHM : Confirmed by: Nancie Velarde MD 14-May-2019 16:18:06
== END 2019-05-14 13:47 | disposition home or self-care (01) ==
LOC: ER 09:32
DX: R42 Dizziness and giddiness (principal); I10 Essential (primary) hypertension; E11.9 Type 2 diabetes mellitus without complications; F17.200 Nicotine dependence, unspecified, uncomplicated; E78.00 Pure hypercholesterolemia, unspecified; Z90.710 Acquired absence of both cervix and uterus; Z96.642 Presence of left artificial hip joint; Z96.652 Presence of left artificial knee joint
CPT/HCPCS: 93005; 36415; 82553; 82550; 85025; 80053; 81001; 84484; 71045; 70450; 93010; A9270 ×2; 99285

== ENCOUNTER 2019-12-19 06:34 | Day surgery (SDC) | payer MEDICARE, MEDICAID ==
[~2019-12-19 06:34] MED LIST changes: +KETOROLAC TROMETHAMINE 0.45% 4 DROP/0.4 ML DROPERETTE OS PRN; -LACTATED RINGERS 1000 ML IV PRN; -LIDOCAINE 0.5% INJ-PF (5 MG/ML) 50 ML SDV SUBCUT PRN; -LIDOCAINE 2% INJ (20 MG/ML) 20 ML MDV ONE
[2019-12-19] MEDS ORDERED: MIDAZOLAM 2 MG/2 ML INJ ONE ×2 (06:52→07:59)
[2019-12-19] MEDS ORDERED: FENTANYL CITRATE INJ/PF 100 MCG/2 ML AMPUL ONE (06:53)
[2019-12-19] MEDS: BESIFLOXACIN HCL 0.6% OPH SUSP 5 ML BOTTLE OS PRN ×4 (07:05→08:14)
[2019-12-19] MEDS: CYCLOPENTOLATE 0.2%/PHENYLEPHRINE 1% OPH SOLN 2 ML OS PRN ×3 (07:05→07:30)
[2019-12-19] MEDS: TROPICAMIDE 1% OPH SOLN 15 ML OS PRN ×3 (07:05→07:30)
[2019-12-19] MEDS: TETRACAINE HCL 0.5% OPH SOLN 4 ML OS PRN ×3 (07:05→07:55)
[2019-12-19] MEDS ORDERED: EPINEPHRINE INJ/PF 1 MG/1 ML AMPULE ONE (07:11)
[2019-12-19] MEDS ORDERED: CHONDR SU A NA/HYALUR INTRAOC KIT (SURGICARE) ONE (07:11)
[2019-12-19] MEDS ORDERED: LIDOCAINE 1%/PHENYLEPHRINE 1.5% 1 ML VIAL ONE (07:11)
[2019-12-19] MEDS: DORZOLAMIDE HCL 2%/TIMOLOL MALEAT 0.5% OPH SOLN 10 ML OS PRN ×2 (08:07→08:14)
--- NOTE | 2019-12-19 13:21 | Operative Report ---
Operative Report-[facility] Operative Report: DATE OF SURGERY: 12/19/19 PREOPERATIVE DIAGNOSIS: Cataracts, left eye POSTOPERATIVE DIAGNOSIS: Cataract, left eye OPERATION: Cataract extraction with insertion of an IOL of the left eye. Intraocular Lens Model: [23.0 zcb00] She underwent surgery for difficulty seeing the computer SURGEON: Heraclio Escobar MD ANESTHESIA: Topical PROCEDURE: After obtaining appropriate consent, the patient's left eye was prepped and draped in a sterile fashion as well as the surgeon in the sterile manner and cataract surgery was started. First a paracentesis blade was used to make a side-port incision. Viscoelastic was used to inflate the anterior chamber. Next a 2.4 mm incision was made with a 2.4 mm blade, clear corneal temporarily. A continuous capsulorrhexis was made using a cystotome and Utrata forceps. Following this hydrodissection was carried out to make the lens fully loose and mobile and it was rotated 90 degrees. Following this, a divide and conquer technique was used to phacoemulsify the lens. The remaining cortex was removed with an irrigation/aspiration. Provisc was instilled into the capsular b ag to inflate the bag.The intraocular lens was placed. The remaining viscoelastic material was removed with irrigation/aspiration. Following this, the incision was found to be watertight. Besivance and Cosopt was instilled into the eye and a protective shield was placed over the eye. The patient was returned to the postoperative recovery in a stable condition.
== END 2019-12-19 11:21 | disposition home or self-care (01) ==
LOC: SC 06:34
PROVIDERS: ATTEND Internal Medicine
DX: H25.13 Age-related nuclear cataract, bilateral (principal); H40.013 Open angle with borderline findings, low risk, bilateral; D31.32 Benign neoplasm of left choroid; E11.9 Type 2 diabetes mellitus without complications; H17.89 Other corneal scars and opacities; I10 Essential (primary) hypertension; E66.01 Morbid (severe) obesity due to excess calories; G47.33 Obstructive sleep apnea (adult) (pediatric); Z88.8 Allergy status to other drugs, medicaments and biological substances; J44.9 Chronic obstructive pulmonary disease, unspecified; E78.00 Pure hypercholesterolemia, unspecified; E03.9 Hypothyroidism, unspecified; G62.9 Polyneuropathy, unspecified; G89.29 Other chronic pain; F17.210 Nicotine dependence, cigarettes, uncomplicated
CPT/HCPCS: 66984; 82962; J2250; J3490 ×2; A9270; J0171; J3010; V2632

== ENCOUNTER 2020-01-09 08:44 | Day surgery (SDC) | payer MEDICARE, MEDICAID ==
[~2020-01-09 08:44] MED LIST changes: +CHONDR SU A NA/HYALUR INTRAOC KIT (SURGICARE) ONE; +DORZOLAMIDE HCL 2%/TIMOLOL MALEAT 0.5% OPH SOLN 10 ML OD PRN; +EPINEPHRINE INJ/PF 1 MG/1 ML AMPULE ONE; +KETOROLAC TROMETHAMINE 0.45% 4 DROP/0.4 ML DROPERETTE OD PRN; -KETOROLAC TROMETHAMINE 0.45% 4 DROP/0.4 ML DROPERETTE OS PRN; +LIDOCAINE 1% INJ-PF (10 MG/ML) 30 ML SDV ONE
[2020-01-09] MEDS: TROPICAMIDE 1% OPH SOLN 15 ML OD PRN ×3 (09:39→09:59)
[2020-01-09] MEDS: CYCLOPENTOLATE 0.2%/PHENYLEPHRINE 1% OPH SOLN 2 ML OD PRN ×3 (09:39→09:59)
[2020-01-09] MEDS: BESIFLOXACIN HCL 0.6% OPH SUSP 5 ML BOTTLE OD PRN ×3 (09:39→10:31)
[2020-01-09] MEDS: TETRACAINE HCL 0.5% OPH SOLN 4 ML OD PRN ×3 (09:40→10:10)
[2020-01-09] MEDS ORDERED: MIDAZOLAM 2 MG/2 ML INJ ONE (09:49)
[2020-01-09] MEDS ORDERED: TRYPAN BLUE 0.06 % OPH SOLN 0.5 ML DISP.SYRIN ONE (10:03)
--- NOTE | 2020-01-09 12:22 | Operative Report ---
Operative Report-[facility] Operative Report: DATE OF SURGERY: 01/09/2020 PREOPERATIVE DIAGNOSIS: Cataract, right eye POSTOPERATIVE DIAGNOSIS: Cataract, right eye OPERATION: Cataract extraction with insertion of an IOL of the right eye. Intraocular Lens Model: [22.5 zcb00] Reason for surgery was difficulty reading small print SURGEON: Heraclio Escobar MD ANESTHESIA: Topical PROCEDURE: After obtaining appropriate consent, the patient's right eye was prepped and draped in a sterile fashion as well as the surgeon in the sterile manner and cataract surgery was started. First a paracentesis blade was used to make a side-port incision. Viscoelastic was used to inflate the anterior chamber. Next a 2.4 mm incision was made with a 2.4 mm blade, clear corneal temporarily. A continuous capsulorrhexis was made using a cystotome and Utrata forceps. Following this hydrodissection was carried out to make the danyelle fully loose and mobile and it was rotated. Following this, a divide and conquer technique was used to phacoemulsify the danyelle. The remaining cortex was removed with an irrigation/aspiration. Provisc was instilled into the capsular bag to inflate the bag. The intraocular lens was placed. The remaining viscoelastic material was removed with irrigation/aspiration. Following this, the incision was found to be watertight. Besivance and Cosopt was instilled into the eye and a protective shield was placed over the eye. The patient was reurned to the postoperative recovery in a stable condition.
== END 2020-01-09 11:10 | disposition home or self-care (01) ==
LOC: SC 08:44
PROVIDERS: ATTEND Internal Medicine
DX: H25.11 Age-related nuclear cataract, right eye (principal); Z96.1 Presence of intraocular lens; H17.89 Other corneal scars and opacities; E11.9 Type 2 diabetes mellitus without complications; I10 Essential (primary) hypertension; E78.00 Pure hypercholesterolemia, unspecified; E03.9 Hypothyroidism, unspecified; D64.9 Anemia, unspecified; J44.9 Chronic obstructive pulmonary disease, unspecified; F17.210 Nicotine dependence, cigarettes, uncomplicated; G47.33 Obstructive sleep apnea (adult) (pediatric); E66.9 Obesity, unspecified; Z99.81 Dependence on supplemental oxygen
CPT/HCPCS: 66984; 82962; V2632; J2250; J3490 ×3; A9270; J0171

== ENCOUNTER 2020-03-01 06:15 | Emergency (ER) | payer MEDICARE, MEDICAID ==
--- NOTE | 2020-03-01 07:07 | ER Document Report ---
ED General - General Chief Complaint: Shoulder Injury Stated Complaint: FALL/LEFT ARM PAIN Time Seen by Provider: 03/01/20 07:07 Primary Care Provider: GLORIA COVARRUBIAS PA-C [Primary Care Provider] - Follow up as needed TRAVEL OUTSIDE OF THE [place] IN LAST 30 DAYS: No - HPI Notes: 59-year-old female presents with left shoulder pain. Patient states that on night, she slipped while getting out of the bathtub. She landed onto her left shoulder. She did hit her head and had a small bump on her forehead, this is now resolved. She denies headache or neck pain. She reports she has had extreme pain in her left shoulder ever since the fall, she states that she feels like she cannot move her arm as this exacerbates the pain. She has been taking Percocet at home without much relief. She denies pain to her chest or abdomen. She reports chronic pain in her left hip, she has been ambulatory without issue. She states that she did not come to the emergency department sooner because she does not drive and typically uses Medicaid transport. - Related Data Allergies/Adverse Reactions: pregabalin [From Lyrica] Adverse Reaction (Severe, Verified 12/13/19 13:00) "loopy" Past Medical History - Social History Smoking Status: Current Every Day Smoker Chew tobacco use (# tins/day): No Frequency of alcohol use: None Drug Abuse: None Family History: Reviewed & Not Pertinent Patient has homicidal ideation: No - Past Medical History Cardiac Medical History: Reports: Hx Hypercholesterolemia, Hx Hypertension - meds Denies: Hx Coronary Artery Disease, Hx Heart Attack, Hx Pulmonary Embolism Pulmonary Medical History: Reports: Hx Asthma - meds Denies: Hx Bronchitis, Hx COPD, Hx Pneumonia, Hx Respiratory Failure, Hx Sleep Apnea, Hx Tuberculosis Neurological Medical History: Denies: Hx Cerebrovascular Accident, Hx Seizures Endocrine Medical History: Reports: Hx Diabetes Mellitus Type 2 Renal/ Medical History: Denies: Hx Peritoneal Dialysis Malignancy Medical History: Denies: Hx Lung Cancer GI Medical History: Denies: Hx Crohn's Disease, Hx Gastroesophageal Reflux Disease, Hx Hepatitis, Hx Hiatal Hernia, Hx Irritable Bowel, Hx Liver Failure, Hx Pancreatitis, Hx Ulcer Musculoskeletal Medical History: Reports Hx Arthritis - generalized, Reports Hx Fibromyalgia Psychiatric Medical History: Reports: Hx Bipolar Disorder, Hx Depression, Hx Post Traumatic Stress Disorder, Hx Schizophrenia Infectious Medical History: Denies: Hx Hepatitis Past Surgical History: Reports: Hx Cardiac Surgery, Hx Section, Hx Hysterectomy - "partial hysterectomy from an ovarian cyst", Hx Orthopedic Surgery - back surgery, left hip and knee replacement, Hx Tonsillectomy. Denies: Hx Colostomy, Hx Mastectomy, Hx Open Heart Surgery, Hx Pacemaker - Immunizations Immunizations up to date: Yes Hx Diphtheria, Pertussis, Tetanus Vaccination: Yes Physical Exam - Vital signs Vitals: Temp Pulse Resp BP Pulse Ox 98.8 F 94 15 163/79 H 93 03/01/20 06:22 03/01/20 06:22 03/01/20 06:22 03/01/20 06:22 03/01/20 06:22 - General General appearance: Alert - HEENT Head: Normocephalic, Atraumatic. No: Cortes's sign, Rac[place]'s eyes Extraocular movements intact: Yes Pupils: PERRL Neck: Other - No midline tenderness - Respiratory Chest status: Nontender. No: Ecchymosis Breath sounds: Normal - Cardiovascular Rhythm: Regular Heart sounds: Normal auscultation - Abdominal Distension: No distension Bowel sounds: Normal Notes: No ecchymosis - Back Back: Normal - Extremities Notes: Tenderness to left shoulder, anterior aspect. There is some old appearing ecchymosis. Arm is bent at elbow, she is able to wiggle fingers and has strong hand grasp. Limited shoulder range of motion due to pain, will reassess after pain medication. - Neurological Neuro grossly intact: Yes Cognition: Normal Orientation: AAOx4 - Psychological Associated symptoms: Normal affect - Skin Skin Temperature: Warm Course - Re-evaluation Re-evalutation: 03/01/20 08:18 59-year-old female fell 4 nights ago while getting out of shower, has had left shoulder pain since. On exam she has marked tenderness to the humeral head region with ecchymosis. Cannot evaluate range of motion at this time due to pain, will assess after morphine. Elbow and forearm intact, able to wiggle fingers and squeeze hand. High suspicion for humeral neck/head fracture. Dislocation possibility as well. X-rays to be obtained. No chest wall tenderness, however given the mechanism will evaluate rib x-rays for obvious rib fractures. Will additionally CT head and C-spine to rule out intracranial trauma or C-spine trauma. 03/01/20 08:38 Radiology unable to perform rib x-rays. Given that she has no tenderness, clear breath sounds and no ecchymosis to her chest wall, have a low suspicion for rib fractures at this time. 03/01/20 09:11 Images not available in EMR currently. I have reviewed radiology reports. Per radiology: CT head is negative for bleed CT C-spine pending Comminuted fracture of the humeral head and neck, no visualized rib fracture Negative left forearm Negative left wrist 03/01/20 09:16 Updated patient on results. In to reexamine, she has intact range of motion at the wrist, refuses to otherwise move arm, has intact passive range of motion at elbow. Range of motion limited in shoulder. 03/01/20 09:27 CT C-spine reviewed, per radiology no acute fracture. I discussed humeral head/neck fractures with Dr. schmitz, per his recom mendations patient would be appropriate for outpatient follow-up with sling, surgery not indicated at this time. Ordered sling. Will attempt further pain control now. 03/01/20 09:27 03/01/20 10:50 Updated patient, will attempt oral multimodal pain medication at this time 03/01/20 12:08 Patient appears improved. I discussed with her follow-up with Dr. schmitz, she states she has established with him as he did her hip. She is on a pain contract so cannot prescribe any further opioids. Have discussed continue multimodal pain control at home with Flexeril and ibuprofen. Return precautions were discussed. Patient was stable at time of discharge. - Vital Signs Vital signs: Temp Pulse Resp BP Pulse Ox 98.6 F 68 20 139/65 H 92 03/01/20 09:57 03/01/20 09:57 03/01/20 09:57 03/01/20 09:57 03/01/20 09:57 Discharge - Discharge Clinical Impression: Fracture of humeral head, closed Qualifiers: Encounter type: initial encounter Laterality: left Qualified Code(s): S42.292A - Other displaced fracture of upper end of left humerus, initial encounter for closed fracture Condition: Stable Disposition: HOME, SELF-CARE Instructions: Sling as Treatment (OM) Additional Instructions: Please call Dr. angel's office tomorrow morning as discussed. Continue your home Percocet. Stop use of methocarbamol and begin use of Flexeril. You may additionally use ibuprofen and lidocaine patches for additional pain control. Keep your arm in the sling until he can be seen by orthopedics. Return to the emergency department for any concerning worsening symptoms. Prescriptions: Cyclobenzaprine HCl [Flexeril 10 mg Tablet] 10 mg PO TIDP PRN #30 tab PRN Reason: Ibuprofen [Ibu] 800 mg PO Q8H PRN #60 tablet PRN Reason: Referrals: GLORIA COVARRUBIAS PA-C [Primary Care Provider] - Follow up as needed XENIA ANGEL DO [ACTIVE STAFF] - Follow up as needed
[2020-03-01] MEDS ORDERED: MORPHINE SULFATE 10 MG/ML INJ IV ONE (07:24)
--- NOTE | 2020-03-01 09:01 | RADIOLOGY REPORT (SQ) ---
EXAM DESCRIPTION: WRIST LEFT 2 VIEWS IMAGES COMPLETED DATE/TIME: 03/01/2020 8:32 am REASON FOR STUDY: fall/pain COMPARISON: None. NUMBER OF VIEWS: Three views. TECHNIQUE: AP, lateral, and oblique radiographic images acquired of the left wrist. LIMITATIONS: None. FINDINGS: MINERALIZATION: Normal. BONES: No acute fracture or dislocation. No worrisome bone lesions. Normal alignment. SOFT TISSUES: No soft tissue swelling. No foreign body. OTHER: No other significant finding. IMPRESSION: NEGATIVE STUDY OF THE LEFT WRIST. NO RADIOGRAPHIC EVIDENCE OF ACUTE INJURY. TECHNICAL DOCUMENTATION: JOB ID: [id number] 2010 [employer]- All Rights Reserved Reading location - IP/workstation name: [email or web address]
--- NOTE | 2020-03-01 09:01 | RADIOLOGY REPORT (SQ) ---
EXAM DESCRIPTION: FOREARM LEFT COMPLETED DATE/TIME: 03/01/2020 8:32 am REASON FOR STUDY: fall/pain COMPARISON: None. NUMBER OF VIEWS: Two views. TECHNIQUE: Two radiographic images acquired of the left forearm, including elbow and wrist in at [address] one projection. LIMITATIONS: None. FINDINGS: MINERALIZATION: Normal. BONES: No acute fracture. No worrisome bone lesions. SOFT TISSUES: No obvious swelling or foreign body. OTHER: No other significant finding. IMPRESSION: NEGATIVE STUDY OF THE LEFT FOREARM. NO RADIOGRAPHIC EVIDENCE OF ACUTE INJURY. TECHNICAL DOCUMENTATION: JOB ID: [id number] 2010 [employer]- All Rights Reserved Reading location - IP/workstation name: [email or web address]
--- NOTE | 2020-03-01 09:03 | RADIOLOGY REPORT (SQ) ---
EXAM DESCRIPTION: HUMERUS LEFT; SHOULDER LEFT 2 OR MORE VIEWS IMAGES COMPLETED DATE/TIME: 03/01/2020 8:32 am REASON FOR STUDY: fall/pain COMPARISON: None. NUMBER OF VIEWS: Three views. TECHNIQUE: Internal rotation, external rotation, and Y view images acquired of the left shoulder and humerus. LIMITATIONS: None. FINDINGS: MINERALIZATION: Normal. BONES: Comminuted displaced fractures of the humeral head and neck. No gross dislocation of the haresh ohumeral joint. The remainder of the humerus is intact. JOINTS: No dislocation. VISUALIZED LUNGS AND RIBS: No pneumothorax. No rib fracture. SOFT TISSUES: No radiopaque foreign body. OTHER: No other significant finding. IMPRESSION: COMMINUTED FRACTURES OF THE HUMERAL HEAD AND NECK. TECHNICAL DOCUMENTATION: JOB ID: [id number] 2010 [employer]- All Rights Reserved Reading location - IP/workstation name: [email or web address]
--- NOTE | 2020-03-01 09:03 | RADIOLOGY REPORT (SQ) ---
EXAM DESCRIPTION: HUMERUS LEFT; SHOULDER LEFT 2 OR MORE VIEWS IMAGES COMPLETED DATE/TIME: 03/01/2020 8:32 am REASON FOR STUDY: fall/pain COMPARISON: None. NUMBER OF VIEWS: Three views. TECHNIQUE: Internal rotation, external rotation, and Y view images acquired of the left shoulder and humerus. LIMITATIONS: None. FINDINGS: MINERALIZATION: Normal. BONES: Comminuted displaced fractures of the humeral head and neck. No gross dislocation of the haresh ohumeral joint. The remainder of the humerus is intact. JOINTS: No dislocation. VISUALIZED LUNGS AND RIBS: No pneumothorax. No rib fracture. SOFT TISSUES: No radiopaque foreign body. OTHER: No other significant finding. IMPRESSION: COMMINUTED FRACTURES OF THE HUMERAL HEAD AND NECK. TECHNICAL DOCUMENTATION: JOB ID: [id number] 2010 [employer]- All Rights Reserved Reading location - IP/workstation name: [email or web address]
--- NOTE | 2020-03-01 09:04 | RADIOLOGY REPORT (SQ) ---
EXAM DESCRIPTION: CT HEAD WITHOUT IMAGES COMPLETED DATE/TIME: 03/01/2020 8:54 am REASON FOR STUDY: fall, head trauma, eval bleed COMPARISON: 05/14/2019. TECHNIQUE: Axial images acquired through the brain without intravenous contrast. Images reviewed wi th bone, brain and subdural windows. Additional sagittal and coronal reconstructions were generated. Images stored on PACS. All CT scanners at this facility use dose modulation, iterative reconstruction, and/or weight based d osing when appropriate to reduce radiation dose to as low as reasonably achievable (ALARA). [facility]: Dose Right [facility]: CareDose [facility]: Dose Right [facility]: Teradose 4D [facility]: Smart [employer] RADIATION DOSE: CT Rad equipment meets quality standard of care and radiation dose reduction techniq ues were employed. CTDIvol: 53.2 mGy. DLP: 1017 mGy-cm. mGy. LIMITATIONS: None. FINDINGS: VENTRICLES: Normal size and contour. CEREBRUM: No masses. No hemorrhage. No midline shift. No evidence for acute infarction. Normal gra y/white matter differentiation. No areas of low density in the white matter. CEREBELLUM: No masses. No hemorrhage. No alteration of density. No evidence for acute infarction. EXTRAAXIAL SPACES: No fluid collections. No masses. ORBITS AND GLOBE: No intra- or extraconal masses. Normal contour of globe without masses. CALVARIUM: No fracture. PARANASAL SINUSES: No fluid or mucosal thickening. SOFT TISSUES: No mass or hematoma. OTHER: No other significant finding. IMPRESSION: NORMAL BRAIN CT WITHOUT CONTRAST. EVIDENCE OF ACUTE STROKE: NO. COMMENT: Quality ID # [id number]: Final reports with documentation of one or more dose reduction techniques (e.g., Automated exposure control, adjustment of the mA and/or kV according to patient size, use of iterative reconstruction technique) TECHNICAL DOCUMENTATION: JOB ID: [id number] 2010 [employer]- All Rights Reserved Reading location - IP/workstation name: [email or web address]
--- NOTE | 2020-03-01 09:14 | RADIOLOGY REPORT (SQ) ---
EXAM DESCRIPTION: CT CERVICAL SPINE WITHOUT IMAGES COMPLETED DATE/TIME: 03/01/2020 8:54 am REASON FOR STUDY: fall, head trauma, eval injury COMPARISON: None. TECHNIQUE: Axial images acquired through the cervical spine without intravenous contrast. Images re viewed with lung, soft tissue and bone windows. Reconstructed coronal and sagittal MPR images review ed. Images stored on PACS. All CT scanners at this facility use dose modulation, iterative reconstruction, and/or weight based d osing when appropriate to reduce radiation dose to as low as reasonably achievable (ALARA). [facility]: Dose Right [facility]: CareDose [facility]: Dose Right [facility]: Teradose 4D [facility]: [employer] RADIATION DOSE: CT Rad equipment meets quality standard of care and radiation dose reduction techniq ues were employed. CTDIvol: 29.1 mGy. DLP: 616 mGy-cm. mGy. LIMITATIONS: None. FINDINGS: ALIGNMENT: Anatomic. MINERALIZATION: Normal. VERTEBRAL BODIES: No fractures or dislocation. DISCS: Multilevel disc space narrowing with osteophytes. FACETS, LATERAL MASSES, POSTERIOR ELEMENTS: Facet arthropathy. No fractures. No dislocation. No ac anupama findings. HARDWARE: None in the spine. VISUALIZED RIBS: No fractures. LUNG APICES AND SOFT TISSUES: No significant or acute findings. OTHER: No other significant finding. IMPRESSION: CHRONIC DEGENERATIVE CHANGES. NO ACUTE FINDINGS. TECHNICAL DOCUMENTATION: JOB ID: [id number] Quality ID # [id number]: Final reports with documentation of one or more dose reduction techniques (e.g., Au tomated exposure control, adjustment of the mA and/or kV according to patient size, use of iterative reconstruction technique) 2010 [employer]- All Rights Reserved Reading location - IP/workstation name: [email or web address]
[2020-03-01] MEDS ORDERED: ACETAMINOPHEN 325 MG TABLET PO ONE (10:49)
[2020-03-01] MEDS ORDERED: OXYCODONE HCL IR 5 MG TABLET PO ONE (10:49)
[2020-03-01] MEDS ORDERED: IBUPROFEN 800 MG TABLET PO ONE (10:49)
[2020-03-01] MEDS ORDERED: CYCLOBENZAPRINE HCL 10 MG TABLET PO ONE (10:49)
[2020-03-01] MEDS ORDERED: LIDOCAINE 5% (700 MG) TRANSDERMAL ADH..PATCH TP ONE (10:50)
[2020-03-01 14:41] VITALS: BP 139/85
== END 2020-03-01 13:35 | disposition home or self-care (01) ==
LOC: ER 06:15
DX: S42.292A Other displaced fracture of upper end of left humerus, initial encounter for closed fracture (principal); M79.602 Pain in left arm; M25.512 Pain in left shoulder; W18.2XXA Fall in (into) shower or empty bathtub, initial encounter; Z88.8 Allergy status to other drugs, medicaments and biological substances; F17.200 Nicotine dependence, unspecified, uncomplicated; I10 Essential (primary) hypertension; Z79.899 Other long term (current) drug therapy; E11.9 Type 2 diabetes mellitus without complications; J45.909 Unspecified asthma, uncomplicated
CPT/HCPCS: 99285; 96374; 73090; 73060; 73030; 73100; 70450; 72125; A9270 ×5; J2270

== ENCOUNTER 2020-05-27 13:58 | Emergency (ER) | payer MEDICARE, MEDICAID ==
[2020-05-27] MEDS ORDERED: OXYCODONE-ACETAMINOPHEN 5-325 MG TABLET PO ONE (14:18)
--- NOTE | 2020-05-27 14:20 | ER Document Report ---
ED Medical Screen (RME) - General Chief Complaint: Shoulder Pain Stated Complaint: LEFT SHOULDER PAIN Time Seen by Provider: 05/27/20 14:16 Primary Care Provider: GLORIA COVARRUBIAS PA-C [Primary Care Provider] - Follow up as needed Notes: Patient states that she fractured her left humerus in January of this year. Patient states that several weeks ago she fell and did jaw her arm. Patient states that she has had persistent left arm, left chest left upper back and left-sided neck pain since the initial injury in January. Patient states that she was taken off of narcotics 2 weeks ago by her orthopedic doctor. The rupali rg states that she cannot tolerate the pain anymore and needs to have additional x-rays and find out what is going on with her pain symptoms. Patient with a history of asthma, sleep apnea, anxiety, depression, bipolar disorder, hypertension, dyslipidemia and fibromyalgia. I have greeted and performed a rapid initial assessment of this patient. A comprehensive ED assessment and evaluation of the patient, analysis of test results and completion of the medical decision making process will be conducted by additional ED providers. TRAVEL OUTSIDE OF THE [place] IN LAST 30 DAYS: No - Related Data Allergies/Adverse Reactions: pregabalin [From Lyrica] Adverse Reaction (Severe, Verified 05/27/20 14:13) "loopy" Past Medical History - Past Medical History Cardiac Medical History: Reports: Hx Hypercholesterolemia, Hx Hypertension - meds Denies: Hx Coronary Artery Disease, Hx Heart Attack, Hx Pulmonary Embolism Pulmonary Medical History: Reports: Hx Asthma - meds Denies: Hx Bronchitis, Hx COPD, Hx Pneumonia, Hx Respiratory Failure, Hx Sleep Apnea, Hx Tuberculosis Neurological Medical History: Denies: Hx Cerebrovascular Accident, Hx Seizures Endocrine Medical History: Reports: Hx Diabetes Mellitus Type 2 Renal/ Medical History: Denies: Hx Peritoneal Dialysis Malignancy Medical History: Denies: Hx Lung Cancer GI Medical History: Denies: Hx Crohn's Disease, Hx Gastroesophageal Reflux Disease, Hx Hepatitis, Hx Hiatal Hernia, Hx Irritable Bowel, Hx Liver Failure, Hx Pancreatitis, Hx Ulcer Musculoskeltal Medical History: Reports Hx Arthritis - generalized, Reports Hx Fibromyalgia Psychiatric Medical History: Reports: Hx Bipolar Disorder, Hx Depression, Hx Post Traumatic Stress Disorder, Hx Schizophrenia Infectious Medical History: Denies: Hx Hepatitis Past Surgical History: Reports: Hx Cardiac Surgery, Hx Section, Hx Hysterectomy - "partial hysterectomy from an ovarian cyst", Hx Orthopedic Surgery - back surgery, left hip and knee replacement, Hx Tonsillectomy. Denies: Hx Colostomy, Hx Mastectomy, Hx Open Heart Surgery, Hx Pacemaker - Immunizations Immunizations up to date: Yes Hx Diphtheria, Pertussis, Tetanus Vaccination: Yes Physical Exam - Vital signs Vitals: Temp Pulse Resp BP Pulse Ox 98.2 F 79 20 124/87 H 94 05/27/20 14:09 05/27/20 14:09 05/27/20 14:05/27/20 14:05/27/20 14:09 - General General appearance: Appears well, Alert Notes: Tenderness to proximal third of left humerus, tenderness to left lateral neck, left upper back area, and left pectoralis muscle Course - Vital Signs Vital signs: Temp Pulse Resp BP Pulse Ox 98.2 F 79 20 124/87 H 94 05/27/20 14:09 05/27/20 14:09 05/27/20 14:05/27/20 14:09 05/27/20 14:09 Doctor's Discharge - Discharge Referrals: GLORIA COVARRUBIAS PA-C [Primary Care Provider] - Follow up as needed
--- NOTE | 2020-05-27 14:52 | RADIOLOGY REPORT (SQ) ---
EXAM DESCRIPTION: HUMERUS LEFT IMAGES COMPLETED DATE/TIME: 05/27/2020 2:41 pm REASON FOR STUDY: L arm pain, hx prev fx COMPARISON: 03/01/2020 NUMBER OF VIEWS: Two views. TECHNIQUE: Two radiographic images were acquired of the left humerus to include elbow and shoulder i n at least one projection. LIMITATIONS: None. FINDINGS: MINERALIZATION: Decreased. BONES: Again seen is the highly comminuted fracture of the humeral neck and head with grossly stable alignment. New callus formation and heterotopic ossification from prior exam. No new fractures. No gross dislocation. Acromioclavicular osteophytosis. SOFT TISSUES: No obvious swelling or foreign body. OTHER: No other significant finding. IMPRESSION: 1. Grossly stable alignment of the previously-seen comminuted proximal humeral fracture with interval callus formation. 2. No new bony abnormality. TECHNICAL DOCUMENTATION: JOB ID: [id number] 2010 [employer]- All Rights Reserved Reading location - IP/workstation name: [email or web address]
--- NOTE | 2020-05-27 14:55 | RADIOLOGY REPORT (SQ) ---
EXAM DESCRIPTION: CHEST SINGLE VIEW IMAGES COMPLETED DATE/TIME: 05/27/2020 2:41 pm REASON FOR STUDY: cp, upper back, LUE pain COMPARISON: 05/14/2019 EXAM PARAMETERS: NUMBER OF VIEWS: One view. TECHNIQUE: Single frontal radiographic view of the chest acquired. RADIATION DOSE: NA LIMITATIONS: None. FINDINGS: LUNGS AND PLEURA: Stable chronic interstitial change. No focal consolidation, pleural eff usion or pneumothorax. MEDIASTINUM AND HILAR STRUCTURES: No masses. Contour normal. HEART AND VASCULAR STRUCTURES: Heart normal in size. Normal vasculature. BONES: Known comminuted left proximal humerus fracture. HARDWARE: None. OTHER: No other significant finding. IMPRESSION: No evidence of acute cardiopulmonary process. Known comminuted left proximal humerus fracture. TECHNICAL DOCUMENTATION: JOB ID: [id number] 2010 [employer]- All Rights Reserved Reading location - IP/workstation name: [email or web address]
[2020-05-27 15:22] LABS: ABSOLUTE BASOPHILS # (AUTO) 0.1 10^3/uL (0.0-0.2); ABSOLUTE EOSINOPHILS # (AUTO) 0.3 10^3/uL (0.0-0.6); ABSOLUTE LYMPHOCYTES (AUTO) 3.2 10^3/uL (0.5-4.7); ABSOLUTE MONOCYTES (AUTO) 0.8 10^3/uL (0.1-1.4); ABSOLUTE NEUT (AUTO) 5.9 10^3/uL (1.7-8.2); BASOPHILS % (AUTO) 1.1 % (0-2); EOSINOPHILS % (AUTO) 2.6 % (0-6); HEMOGLOBIN 12.4 g/dL (12.0-15.5); LYMPHOCYTES % (AUTO) 31.1 % (13-45); MEAN CORPUSCULAR HEMOGLOBIN 28.5 pg (27.0-33.4); MEAN CORPUSCULAR HGB CONC 33.5 g/dL (32.0-36.0); MEAN CORPUSCULAR VOLUME 85 fl (80-97); PLATELET COUNT 359 10^3/uL (150-450); RED BLOOD COUNT 4.34 10^6/uL (3.72-5.28); RED CELL DISTRIBUTION WIDTH 14.5 % (11.5-14.0); SEGMENTED NEUTROPHILS % (AUTO) 57.2 % (42-78); TOTAL CELLS COUNTED % (AUTO) 100 %; WHITE BLOOD COUNT 10.3 10^3/uL (4.0-10.5)
[2020-05-27 15:46] LABS: ALBUMIN 3.9 g/dL (3.5-5.0); ALKALINE PHOSPHATASE 96 U/L (38-126); ANION GAP 8 (5-19); ASPARTATE AMINO TRANSFERASE 20 U/L (14-36); BILIRUBIN,DIRECT 0.1 mg/dL (0.0-0.4); BILIRUBIN,TOTAL 0.4 mg/dL (0.2-1.3); BLOOD UREA NITROGEN 14 mg/dL (7-20); CALCIUM 9.4 mg/dL (8.4-10.2); CARBON DIOXIDE 26 mmol/L (22-30); CHLORIDE 101 mmol/L (98-107); GLUCOSE 117 mg/dL (75-110); POTASSIUM 4.4 mmol/L (3.6-5.0); TOTAL PROTEIN 7.3 g/dL (6.3-8.2)
[2020-05-27] MEDS ORDERED: KETOROLAC TROMETHAMINE 60 MG/2 ML SDV IM ONE (17:47)
--- NOTE | 2020-05-27 17:55 | ER Document Report ---
ED General - General Chief Complaint: Shoulder Pain Stated Complaint: LEFT SHOULDER PAIN Time Seen by Provider: 05/27/20 14:16 Primary Care Provider: GLORIA COVARRUBIAS PA-C [COMMUNITY BASED STAFF] - Follow up as needed TRAVEL OUTSIDE OF THE [place] IN LAST 30 DAYS: No - HPI Notes: Chief complaint: Chronic pain left shoulder History of present illness: 60-year-old female seen today for chronic/recurrent pain left shoulder. This lady has had longstanding problems with fibromyalgia, bipolar disorder and chronic pain issues apparently for many years. Unfo rtunately she sustained a comminuted closed fracture of her left proximal humerus in January of this year. Patient has been followed by Dr. Caal in [place] and also sees Dr. Braden from orthopedics. Patient's fracture has previously been treated nonoperatively and she was sent to physical therapy which she said did not help her at all. Orthopedics has advised the patient that he is reluctant to prescribe any further narcotics for her ongoing pain. There is been no new injury reported. Patient apparently has been seen at a pain management clinic in the past but is no longer being seen by pain management. She says she is also in the midst of changing primary care providers because they have decided to dismiss her from the practice because of "noncompliance". Patient denies abuse of street drugs or alcohol. Patient reports severe pain in her left proximal humerus aggravated by turning or moving. - Related Data Allergies/Adverse Reactions: pregabalin [From Lyrica] Adverse Reaction (Severe, Verified 05/27/20 14:13) "loopy" Home Medications: see large clear bag at bedside. Past Medical History - General Information source: Patient - Social History Smoking Status: Current Every Day Smoker Chew tobacco use (# tins/day): No Frequency of alcohol use: None Drug Abuse: None Family History: Reviewed & Not Pertinent Patient has homicidal ideation: No - Past Medical History Cardiac Medical History: Reports: Hx Hypercholesterolemia, Hx Hypertension - meds Denies: Hx Coronary Artery Disease, Hx Heart Attack, Hx Pulmonary Embolism Pulmonary Medical History: Reports: Hx Asthma - meds Denies: Hx Bronchitis, Hx COPD, Hx Pneumonia, Hx Respiratory Failure, Hx Sleep Apnea, Hx Tuberculosis Neurological Medical History: Denies: Hx Cerebrovascular Accident, Hx Seizures Endocrine Medical History: Reports: Hx Diabetes Mellitus Type 2 Renal/ Medical History: Denies: Hx Peritoneal Dialysis Malignancy Medical History: Denies: Hx Lung Cancer GI Medical History: Denies: Hx Crohn's Disease, Hx Gastroesophageal Reflux Disease, Hx Hepatitis, Hx Hiatal Hernia, Hx Irritable Bowel, Hx Liver Failure, Hx Pancreatitis, Hx Ulcer Musculoskeletal Medical History: Reports Hx Arthritis - generalized, Reports Hx Fibromyalgia Psychiatric Medical History: Reports: Hx Bipolar Disorder, Hx Depression, Hx Post Traumatic Stress Disorder, Hx Schizophrenia Infectious Medical History: Denies: Hx Hepatitis Past Surgical History: Reports: Hx Cardiac Surgery, Hx Section, Hx Hysterectomy - "partial hysterectomy from an ovarian cyst", Hx Orthopedic Surgery - back surgery, left hip and knee replacement, Hx Tonsillectomy. Denies: Hx Colostomy, Hx Mastectomy, Hx Open Heart Surgery, Hx Pacemaker - Immunizations Immunizations up to date: Yes Hx Diphtheria, Pertussis, Tetanus Vaccination: Yes Review of Systems - Review of Systems Notes: Constitutional: Negative for fever. HENT: Negative for sore throat. Eyes: Negative for visual changes. Cardiovascular: Negative for chest pain. Respiratory: Chronic nonproductive cough. Negative for shortness of breath. Gastrointestinal: Negative for abdominal pain, vomiting or diarrhea. Genitourinary: Negative for dysuria. Musculoskeletal: As per HPI. Skin: Negative for rash. Neurological: Negative for headaches, weakness or numbness. 10 point ROS negative except as marked above and in HPI. Physical Exam - Vital signs Vitals: Temp Pulse Resp BP Pulse Ox 98.2 F 79 20 124/87 H 94 05/27/20 14:09 05/27/20 14:09 05/27/20 14:09 05/27/20 14:09 05/27/20 14:09 Notes: GENERAL: Female patient approximately stated age who is very animated as she describes her pain. SKIN: Good turgor. Chronic erythema over both upper extremities in sun exposed areas. HEAD: Normocephalic atraumatic. EYES: PERRLA. EOMI. Conjunctivae and sclerae clear. EARS: CANALS AND TMS CLEAR. NOSE: CLEAR. MOUTH: Moist mucosa. Good dentition. No stridor or edema. No drooling. NECK: Supple. No masses or thyromegaly. No adenopathy. Carotids 2+ without bruits. No JVD. BACK: Symmetrical without tenderness. CHEST: Respirations unlabored. Scattered rhonchi bilaterally. HEART: Regular rhythm. No murmur gallop or rub. ABDOMEN: Soft nontender without masses, organomegaly or rebound. Bowel sounds normally active. No bruits. GENITALIA: Deferred. EXTREMITIES: Patient is exquisitely tender over the proximal humerus area on the left and resists active and passive movement secondary to pain. No edema. No calf tenderness. Cap refill less than 1.5 seconds. Dorsalis pedis and posterior tibial pulses 3+ and symmetrical. NEUROLOGICAL: GCS 15. Alert and oriented x3. Normal gait. Fluent speech. Cranial nerves II through XII intact. Sensorimotor and cerebellar normal. Normal tone. PSYCHIATRIC: Patient is mildly agitated her behavior escalates to some degree as she discusses her pain is question about her medical history. Course - Re-evaluation Re-evalutation: 05/27/20 17:56 I search the [facility] narcotic database and could not find any recent narcotic prescriptions for this patient I placed the patient's left upper extremity in a sling. I have given her an injection of IM Toradol. I will write a prescription for 12 Percocet tablets and told her that she must discuss referral to a pain management physician with her orthopedist and her primary care doctor. I have advised her that we will not prescribe additional narcotic medication through the emergency department. Findings, clinical impression and plan of treatment have been discussed with patient/family. Understanding of current findings and recommendations has been acknowledged by them and there is agreement regarding disposition and follow-up. - Vital Signs Vital signs: Temp Pulse Resp BP Pulse Ox 98.2 F 79 20 124/87 H 94 05/27/20 14:09 05/27/20 14:09 05/27/20 14:09 05/27/20 14:09 05/27/20 14:09 - Laboratory Result Diagrams: 05/27/20 15:10 05/27/20 15:10 Laboratory results interpreted by me: 05/27/20 05/27/20 15:10 15:10 RDW 14.5 H Sodium 135.2 L Glucose 117 H - Diagnostic Test Radiology reviewed: Image reviewed, Reports reviewed Radiology results interpreted by me: 05/27/20 17:57 Chest X-Ray 05/27/20 14:17 IMPRESSION: No evidence of acute cardiopulmonary process. Known comminuted left proximal humerus fracture. Humerus X-Ray 11/25/20 14:18 IMPRESSION: 1. Grossly stable alignment of the previously-seen comminuted proximal humeral fracture with interval callus formation. 2. No new bony abnormality. - EKG Interpretation by Me Additional EKG results interpreted by me: 05/27/20 17:58 Twelve-lead EKG reviewed by me contemporaneously: 1451 hrs. Indication for study: Left upper extremity pain Rhythm: Normal sinus Rate: 79 Intervals: QT prolongation 505 ms QRS axis: Normal +[address]/T wave changes: None Comparison with prior tracing: None Interpretation: QT prolongation Discharge - Discharge Clinical Impression: Chronic pain syndrome, Fibromyalgia Bipolar disorder Qualifiers: Active/Remission status: remission status unspecified Qualified Code(s): F31.9 - Bipolar disorder, unspecified Condition: Stable Disposition: HOME, SELF-CARE Additional Instructions: Chronic Pain Control Stress, inactivity, and depression make pain more severe regardless of the cause of the pain. Stress and poor physical condition can cause pain such as headaches and backache. Relaxation: Rest in a quiet place with your eyes closed for 20 minutes twice daily. Concentrate on a pleasant image, or simply "feel" your breathing. Clear your mind. Stress management: Deal with your "stressors." Either take action, or eliminate the stressor from your life. Don't let things hang over you. Accept those things you can't change. Nutrition: Eat small, balanced meals -- don't skip, don't overeat. Meals should be high-carbohydrate, low-sugar, low-fat. Exercise: Exercise helps painful conditions and eases stress. Get 30 minutes of moderate exercise, five days a week. Do an activity that does not flare your pain. Precautions: Pain which continues to disrupt daily activities, or which changes in nature, requires a medical evaluation. Pain Clinic referral is available. We do not manage chronic pain in the Emergency Department. We will try to appropriately help you through an acute flare of your chronic painful condition, but for on-going chronic pain that does not improve, you will need to see your private doctor or rug touch up painter. We do not provide repeated medication management of chronic painful conditions. If you wish, we can provide the name of local pain management physicians. Prescriptions: Oxycodone HCl/Acetaminophen [Percocet 5-325 mg Tablet] 1 tab PO Q4H PRN 3 Days #12 tablet PRN Reason: Referrals: WALL,GLORIA, PA-C [COMMUNITY BASED STAFF] - Follow up as needed
[2020-05-27 18:40] VITALS: BP 118/68
--- NOTE | 2020-05-27 19:39 | EKG REPORT ---
SEVERITY:- BORDERLINE ECG - SINUS RHYTHM BORDERLINE PROLONGED QT INTERVAL : Confirmed by: Tony Lott MD 27-May-2020 19:38:23
== END 2020-05-27 18:38 | disposition home or self-care (01) ==
LOC: ER 13:58
DX: M79.7 Fibromyalgia (principal); M25.512 Pain in left shoulder; G89.4 Chronic pain syndrome; R05 Cough; L53.9 Erythematous condition, unspecified; F31.9 Bipolar disorder, unspecified; F17.200 Nicotine dependence, unspecified, uncomplicated; I10 Essential (primary) hypertension; J45.909 Unspecified asthma, uncomplicated; E11.9 Type 2 diabetes mellitus without complications
CPT/HCPCS: 93005; 99285; 96372; 36415; 85025; 80053; 84484; 71045; 73060; 93010; J1885; A9270